=== PATIENT | female | born 1955 | race American Indian/Alaskan Native ===

== ENCOUNTER 2017-02-08 17:08 | Inpatient (IN) | payer SELFPAY ==
[2017-02-08 18:41] LABS: Basophils % (Auto) 0.8 % (0.0-1.8); Eosinophils % (Auto) 2.5 % (0.0-4.3); Hematocrit 41.7 % (30.3-42.9); Hemoglobin 13.6 gm/dl (10.1-14.3); Mean Corpuscular HGB Conc 33 % (30-34); Mean Corpuscular Hemoglobin 27 pg (28-32); Mean Corpuscular Volume 83 fl (79-97); Platelet Count 231 K/mm3 (140-440); Red Blood Count 5.03 M/mm3 (3.65-5.03); White Blood Count 6.8 K/mm3 (4.5-11.0)
[2017-02-08 18:59] LABS: Anion Gap 18 mmol/L; BUN/Creatinine Ratio 18.75; Blood Urea Nitrogen 15 mg/dL (7-17); Calcium 9.7 mg/dL (8.4-10.2); Carbon Dioxide 26 mmol/L (22-30); Chloride 102.6 mmol/L (98-107); Glucose 83 mg/dL (65-100); Potassium 3.9 mmol/L (3.6-5.0); Sodium 143 mmol/L (137-145)
--- NOTE | 2017-02-08 21:17 | Emergency Department Report ---
HPI - General Chief Complaint: Dyspnea/Respdistress Time Seen by Provider: 02/08/17 21:00 - HPI HPI: Room 1 The patient is a 61-year-old female presenting with a chief complaint of shortness of breath. The patient states for the past 2 weeks she has noticed shortness of breath has worsened today. Patient describes dyspnea on exertion with a few feet. Patient also admits to orthopnea and fatigue. The patient states she has had a cough but has been nonproductive. Patient denies fever or chest pain. Currently at rest the patient states she feels "calm." Location: Lungs Duration: 2 weeks Quality: Shortness of breath Severity: Moderate Modifying factors: Exertion causes shortness of breath Context: [see above] Mode of transportation: Unknown ED Past Medical Hx - Past Medical History Previous Medical History?: Yes Hx of Cancer: Yes (right breast s/p mast, xrt/chemo 2001) - Surgical History Past Surgical History?: Yes Hx Breast Surgery: Yes (right mastectomy, 1984,) Additional Surgical History: Right Achilles tendon repair, , tonsillectomy - Family History Family history: no significant - Social History Smoking Status: Never Smoker Substance Use Type: Alcohol - Medications Home Medications: Home Medications Medication Instructions Recorded Confirmed Last Taken Type No Known Home Medications [No 02/08/17 02/08/17 Unknown History Reported Home Medications] ED Review of Systems ROS: Stated complaint: JUNO Other details as noted in HPI Comment: All other systems reviewed and negative Constitutional: denies: chills, fever Eyes: denies: eye pain, eye discharge, vision change ENT: denies: ear pain, throat pain Respiratory: cough, shortness of breath, SOB with exertion Cardiovascular: orthopnea. denies: chest pain Endocrine: no symptoms reported Gastrointestinal: denies: abdominal pain, nausea, diarrhea Genitourinary: denies: urgency, dysuria, discharge Musculoskeletal: denies: back pain, joint swelling, arthralgia Skin: denies: rash, lesions Neurological: denies: headache, weakness, paresthesias Psychiatric: denies: anxiety, depression Hematological/Lymphatic: denies: easy bleeding, easy bruising Physical Exam - Physical Exam Vital Signs: Vital Signs 02/08/17 02/08/17 02/08/17 17:31 19:32 20:00 Temperature 98.1 F Pulse Rate 102 H 95 H 84 Respiratory 22 21 Rate Blood Pressure 163/104 160/73 O2 Sat by Pulse 99 99 97 Oximetry 02/08/17 21:00 Temperature Pulse Rate 98 H Respiratory 22 Rate Blood Pressure 168/85 O2 Sat by Pulse 100 Oximetry Physical Exam: GENERAL: The patient is well-developed well-nourished female lying on stretcher not appearing to be in acute distress. [] HEENT: Normocephalic. Atraumatic. Extraocular motions are intact. Patient has moist mucous membranes. NECK: Supple. Trachea midline CHEST/LUNGS: Clear to auscultation. There is no respiratory distress noted. HEART/CARDIOVASCULAR: Regular with occasional PACs. There is no tachycardia. There is no gallop rub or murmur. ABDOMEN: Abdomen is soft, nontender. Patient has normal bowel sounds. There is no abdominal distention. SKIN: There is no rash. There is no edema. There is no diaphoresis. NEURO: The patient is awake, alert, and oriented. The patient is cooperative. The patient has normal speech MUSCULOSKELETAL: There is no evidence of acute injury. ED Course Vital Signs 02/08/17 02/08/17 02/08/17 17:31 19:32 20:00 Temperature 98.1 F Pulse Rate 102 H 95 H 84 Respiratory 22 21 Rate Blood Pressure 163/104 160/73 O2 Sat by Pulse 99 99 97 Oximetry 02/08/17 21:00 Temperature Pulse Rate 98 H Respiratory 22 Rate Blood Pressure 168/85 O2 Sat by Pulse 100 Oximetry ED Medical Decision Making - Lab Data Result diagrams: 02/08/17 18:29 02/08/17 18:29 Laboratory Tests 02/08/17 02/08/17 02/08/17 18:29 18:29 18:29 WBC 6.8 RBC 5.03 Hgb 13.6 Hct 41.7 MCV 83 MCH 27 L MCHC 33 RDW 14.0 Plt Count 231 Lymph % (Auto) 40.6 H [place] % (Auto) 7.1 Eos % (Auto) 2.5 Baso % (Auto) 0.8 Lymph # 2.8 [place] # 0.5 Eos # 0.2 Baso # 0.1 Seg Neutrophils % 49.0 Seg Neutrophils # 3.3 Sodium 143 Potassium 3.9 Chloride 102.6 Carbon Dioxide 26 Anion Gap 18 BUN 15 Creatinine 0.8 Estimated GFR > 60 BUN/Creatinine Ratio 18.75 Glucose 83 Calcium 9.7 Troponin T < 0.010 NT-Pro-B Natriuret Pep 1879 H - EKG Data -: EKG Interpreted by Me EKG shows normal: sinus rhythm Rate: normal - EKG Data When compared to previous EKG there are: previous EKG unavailable Interpretation: other (left bundle branch block) - Radiology Data Radiology results: image reviewed (chest x-ray) interpreted by me: Chest x-ray-mild cephalization. No definite focal infiltrates, no pneumothorax - Differential Diagnosis CHF, pneumonia, pneumothorax, PE Critical care attestation.: If time is entered above; I have spent that time in minutes in the direct care of this critically ill patient, excluding procedure time. ED Disposition Clinical Impression: CHF (congestive heart failure), Shortness of breath Disposition: OP ADMIT IP TO THIS HOSP Is pt being admited?: Yes Does the pt Need Aspirin: Yes Condition: Fair Referrals: PRIMARY CARE, [Primary Care Provider] - 3-5 Days Time of Disposition: 21:23 (hospitalist paged)
[2017-02-08] MEDS ORDERED: LASIX IV ONE (21:19)
[2017-02-08] MEDS ORDERED: ASPIRIN PO ONE (21:23)
--- NOTE | 2017-02-08 23:30 | History and Physical Report ---
History of Present Illness Date of examination: 02/08/17 History of present illness: 61-year-old woman with a history of breast cancer, status post right masectomy, comes emergency room with complaints of shortness of breath 2 weeks. Also complaining of PND, orthopnea and lower extremity edema. Patient denies chest pain, palpitation, cough, abdominal pain, hematochezia, dysuria, frequency, focal weakness, dysarthria, fever chills, polydipsia polyuria, hot or cold intolerance, easy bruisability, or rash or bleeding from mucosal membrane, rhinorrhea, epistaxis, earache, tinnitus, blurry vision, eye discharge, anxiety, depression. Other review of systems negative PAST SURGICAL HISTORY: Right mastectomy, , tonsillectomy, adenoidectomy , Achilles tendon repair SOCIAL HISTORY: Denies alcohol, tobacco, drugs FAMILY HISTORY: Hypertension Medications and Allergies Allergies Allergy/AdvReac Type Severity Reaction Status Date / Time No Known Allergies Allergy Verified 02/09/17 00:26 Home Medications Medication Instructions Recorded Confirmed Last Taken Type No Known Home Medications [No 02/08/17 02/08/17 Unknown History Reported Home Medications] Exam - Physical Exam Narrative exam: Gen. appearance: Patient lying in bed, no apparent distress HEENT: Normocephalic, atraumatic, pupils equally round and reactive to light, extraocular movement intact, and no sclericterus,. No JVD or thyromegaly or nodule,neck supple, no carotid bruit ,mucous membranes moist, no exudate or erythema Heart: S1, S2, regular rate and rhythm Lungs: Crackles bilaterally, breathing comfortable Abdomen: Positive bowel sounds, nontender, nondistended, no organomegaly Extremity: No edema, cyanosis, clubbing Skin: No rash, nodules, warm, dry Neuro: Oriented 3, cranial nerves II-12 intact, speech is fluent, motor and sensory intact - Constitutional Vitals: Temp Pulse Resp BP Pulse Ox 98.1 F 85 22 159/85 97 02/08/17 17:31 02/08/17 23:00 02/08/17 23:00 02/08/17 23:00 02/08/17 23:00 Results - Labs CBC & Chem 7: 02/10/17 07:13 02/11/17 08:25 Labs: Abnormal lab results 02/08/17 02/08/17 Range/Units 18:29 18:29 MCH 27 L (28-32) pg Lymph % (Auto) 40.6 H (13.4-35.0) % NT-Pro-B Natriuret Pep 1879 H (0-900) pg/mL - Imaging and Cardiology EKG: image reviewed Chest x-ray: image reviewed Assessment and Plan CHF, new onset, probably systolic dysfunction History of breast cancer Admit to medicine Start diuresis with IV Lasix Start aspirin, MOUSTAPHA inhibitor, beta omid Check cardiac enzymes, echo, consult cardiology Monitor I's and O's, daily weights Start DVT prophylaxis
[2017-02-09] MEDS ORDERED: TYLENOL PO PRN (00:17)
[2017-02-09] MEDS ORDERED: ZOFRAN IV PRN (00:17)
[2017-02-09] MEDS ORDERED: PERCOCET 5/325 PO PRN (00:17)
[2017-02-09] MEDS ORDERED: MILK OF MAGNESIA PO PRN (00:17)
[2017-02-09] MEDS ORDERED: DULCOLAX PR PRN (00:17)
[2017-02-09 01:19] LABS: Creatine Kinase MB 1.9 ng/mL (0.0-4.0)
[2017-02-09 01:22] LABS: Creatine Kinase 112 units/L (30-135)
[2017-02-09] MEDS: LASIX IV SCH ×2 (07:06→17:28)
--- NOTE | 2017-02-09 07:09 | Admit Criteria Form ---
Admission Criteria Documentation: HEART FAILURE: COMMON COMPLICATIONS Clinical Indications for Inpatient Care (Place 'X' for any and all applicable criteria): Ongoing inpatient care may be indicated for heart failure with ANY ONE of the following (1)(2)(3)(4)(5): [ ]I. Ongoing need for care for primary condition requiring frequent therapy adjustments because of changes in cardiac function (eg, drug dosage changes for drugs that are renally metabolized) [X ]II. New-onset heart failure [ ]III. Heart failure with decreased urine output not responsive to attempts to optimize volume status [ ]IV. Acute cardiac ischemia causing or associated with failure [ X]V. Complications of heart failure, including ANY ONE of the following: [ ]a) Pericardial effusion [ ]b) Symptomatic pleural effusion [ ]c) O2 saturation <90% or PO2 < 60 mm Hg (8.0 kPa) on room air or require baseline supplemental O2 [ ]d) Tachypnea [ X]e) Dyspnea [ ]f) Syncope [ ]g) Change in mental status [ ]h) Acute renal insufficiency that is severe (reduction of more than 50% in estimated glomerular filtration rate from baseline) or progressive reduction of more than 25% in estimated glomerular filtration rate from baseline, with creatinine continuing to rise) [ ]i) Hemodynamic instability [ ]j) Anasarca [ ]k) Clinically significant metabolic abnormalities due to heart failure (eg, new-onset metabolic acidosis) Extended stay beyond goal length of stay for primary condition may be needed until ALL of the following are present(1)(3): [ ]a) Stable and effective diuretic regimen established (or patient on stable dialysis regimen if in chronic renal failure) [ ]b) Breathing comfortably at rest [ ]c) Saturation of arterial oxygen greater than 90% or at acceptable baseline [ ]d) Pulmonary edema absent or improved [ ]e) Hemodynamic stability [ ]f) Volume status acceptable on oral medication [ ]g) Peripheral or sacral edema absent or improved [ ]h) Renal function stable and manageable at a lower level of care [ ]i) Complications (eg, pleural effusion) resolved or manageable at a lower level of care [ ]j) Patient or caregiver has received written discharge instructions or educational material addressing activity level, diet, discharge medications, follow-up appointment, weight monitoring, and what to do if symptoms worsen The original [employer] content created by [employer] has been revised. The portions of the content which have been revised are identified through the use of italic text or in bold, and [facility] has neither reviewed nor approved the modified material.All other unmodified content is copyright [facility]. Please see references footnoted in the original [facility] edition 2016 Admission Criteria Met: Yes
--- NOTE | 2017-02-09 08:41 | XRay Report ---
CHEST TWO VIEWS: 02/08/17 18:12 CLINICAL: Shortness of breath. COMPARISON: None FINDINGS: The heart is normal size. Central vascular congestion and bilateral hilar fullness. Bilateral perihilar reticular interstitial opacities.No pulmonary consolidation. Right upper lobe subsegmental atelectasis versus scar. There is elevation of the right minor fissure consistent with right upper lobe volume loss. Spondylosis of the thoracic spine. 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 Right upper lobe volume loss of uncertain chronicity.
[2017-02-09] MEDS: LOPRESSOR PO SCH ×2 (11:10→22:01)
[2017-02-09] MEDS: ZESTRIL PO SCH (11:10)
[2017-02-09] MEDS: ASPIRIN PO SCH (11:10)
[2017-02-09 11:37] LABS: Creatine Kinase 116 units/L (30-135)
--- NOTE | 2017-02-09 12:14 | Consultation ---
History of Present Illness Consult date: 02/09/17 Consult reason: shortness of breath History of present illness: 61 yo female presents to ed with a 2 wk history of worsening sob progressing from exertion to rest, also c/o orthopnea. no cp palp syncope cough fever or chills. phx of htn but states that bp became normal with wt loss and no longer takes antihtn meds. she is s/p r mastectomy for breast ca and is believed to be cancer free ecg demonstrates sinus rhythm with lbbb bnp elevated. trop neg Past History Past Medical History: hypertension Past Surgical History: mastectomy Social history: denies: smoking, alcohol abuse Family history: denies: no significant family history Medications and Allergies Allergies Allergy/AdvReac Type Severity Reaction Status Date / Time No Known Allergies Allergy Verified 02/09/17 00:26 Home Medications Medication Instructions Recorded Confirmed Last Taken Type No Known Home Medications [No 02/08/17 02/08/17 Unknown History Reported Home Medications] Active Meds: Active Medications Acetaminophen (Tylenol) 650 mg PO Q4H PRN PRN Reason: Pain MILD(1-3)/Fever >100.5/[facility] Aspirin (Aspirin) 325 mg PO QDAY [facility] Last Admin: 02/09/17 11:10 Dose: 325 mg Bisacodyl (Dulcolax) 10 mg [place] QDAY PRN PRN Reason: Constipation unrelieved by MOM Furosemide (Lasix) 40 mg IV BID@0600,1800 [facility] Last Admin: 02/09/17 07:06 Dose: 40 mg Lisinopril (Zestril) 2.5 mg PO QDAY [facility] Last Admin: 02/09/17 11:10 Dose: 2.5 mg Magnesium Hydroxide (Milk Of Magnesia) 30 ml PO Q4H PRN PRN Reason: Constipation Metoprolol Tartrate (Lopressor) 12.5 mg PO BID [facility] Last Admin: 02/09/17 11:10 Dose: 12.5 mg Ondansetron HCl (Zofran) 4 mg IV Q8H PRN PRN Reason: N/V unrelieved by Reglan Oxycodone/Acetaminophen (Percocet 5/325) 1 tab PO Q6H PRN PRN Reason: Pain, Moderate (4-6) Review of Systems Constitutional: no fever, no chills, no sweats, no anorexia Eyes: bilateral: blurred vision (denies) Ears, nose, mouth and throat: no epistaxis Breasts: other (s/p r mastectomy) Cardiovascular: orthopnea, dyspnea on exertion, no chest pain, no palpitations, no syncope Respiratory: shortness of breath, dyspnea on exertion, no hemoptysis, no pain on inspiration Gastrointestinal: no abdominal pain, no nausea, no vomiting Genitourinary Female: no flank pain Musculoskeletal: no hot joints, no frequent falls Integumentary: no rash Neurological: no seizures, no syncope Psychiatric: no anxiety Endocrine: no cold intolerance, no heat intolerance Hematologic/Lymphatic: no easy bruising Allergic/Immunologic: no urticaria Physical Examination Vital Signs Temp Pulse Resp BP Pulse Ox 98.1 F 102 H 22 163/104 99 02/08/17 17:31 02/08/17 17:31 02/08/17 17:31 02/08/17 17:31 02/08/17 17:31 General appearance: no acute distress HEENT: Positive: PERRL, EOMI Neck: Positive: neck supple, Carotid Upstroke (2+ bilat). Negative: JVD/HJR, Bruit Cardiac: Positive: Reg Rate and Rhythm. Negative: Audible Murmur Lungs: Positive: clear to auscultation Neuro: Positive: Grossly Intact Abdomen: Positive: Soft. Negative: Tender Musculoskeletal: Normal Range of Motion Extremities: Present: edema (trace pedal bilat), Other (periph pulses intact) Results 02/08/17 18:29 02/08/17 18:29 Cardiac Enzymes 02/09/17 02/09/17 Range/Units 00:40 08:27 CK-MB (CK-2) 1.9 2.0 (0.0-4.0) ng/mL Assessment and Plan clinical presentation consistent with new onset systolic heart failure, lbbb rec diuresis, echo. may need an ischemic eval thanks, will follow
--- NOTE | 2017-02-09 15:26 | Progress Note ---
Subjective Date of service: 02/09/17 Interval history: Assessment and plan: New onset systolic congestive heart failure: Patient feels significantly better since he came in She is able to walk to the restroom with out any shortness of breath Denies chest pain Cardiology note reviewed and appreciated Await echo results Troponin 2 sets negative for MN Continue aspirin low-dose beta blockers and diuretics History of breast cancer in remission Patient is alert and oriented She offers no specific complaints at this time Denies any chest pain and denies any shortness of breath at rest and with mild exertion like walking to the restroom She feels a whole lot better since she came in Denies fever or chills sore throat dysphagia nasal congestion Denies abdominal pain nausea or vomiting Objective - Constitutional Vitals: Vital Signs - 12hr 02/09/17 02/09/17 02/09/17 03:35 04:00 05:00 Temperature 97.7 F Pulse Rate 76 76 Respiratory 15 17 Rate Blood Pressure 151/74 153/72 O2 Sat by Pulse 96 97 Oximetry 02/09/17 02/09/17 02/09/17 06:00 07:36 08:00 Temperature Pulse Rate 91 H 80 90 Respiratory 21 17 18 Rate Blood Pressure 160/69 153/72 153/61 O2 Sat by Pulse 95 98 98 Oximetry 02/09/17 02/09/17 02/09/17 09:00 10:00 11:00 Temperature Pulse Rate 83 84 75 Respiratory 17 19 16 Rate Blood Pressure 151/57 146/60 148/64 O2 Sat by Pulse 98 97 97 Oximetry 02/09/17 02/09/17 11:10 12:08 Temperature Pulse Rate 75 Respiratory 16 Rate Blood Pressure 148/64 O2 Sat by Pulse 97 Oximetry General appearance: Present: no acute distress - EENT Eyes: PERRL, EOM intact ENT: hearing intact, clear oral mucosa - Neck Neck: supple, normal ROM - Respiratory Respiratory effort: normal Respiratory: bilateral: CTA - Cardiovascular Rhythm: regular Heart Sounds: Present: S1 & S2 Extremities: No edema - Gastrointestinal General gastrointestinal: Present: soft, non-tender. Absent: hepatomegaly, splenomegaly - Musculoskeletal Musculoskeletal: strength equal bilaterally - Neurologic Neurologic: moves all extremities - Psychiatric Psychiatric: appropriate mood/affect - Labs CBC & Chem 7: 02/08/17 18:29 02/08/17 18:29
[2017-02-10] MEDS: LASIX IV SCH ×2 (05:57→17:46)
[2017-02-10 07:38] LABS: Basophils % (Auto) 0.5 % (0.0-1.8); Eosinophils % (Auto) 2.1 % (0.0-4.3); Hematocrit 42.5 % (30.3-42.9); Hemoglobin 14.2 gm/dl (10.1-14.3); Mean Corpuscular HGB Conc 33 % (30-34); Mean Corpuscular Hemoglobin 28 pg (28-32); Mean Corpuscular Volume 83 fl (79-97); Platelet Count 224 K/mm3 (140-440); Red Blood Count 5.15 M/mm3 (3.65-5.03); Red Cell Distribution Width 14.4 % (13.2-15.2); White Blood Count 5.9 K/mm3 (4.5-11.0)
[2017-02-10 08:02] LABS: Blood Urea Nitrogen 33 mg/dL (7-17); Calcium 9.4 mg/dL (8.4-10.2); Carbon Dioxide 27 mmol/L (22-30); Glucose 101 mg/dL (65-100)
[2017-02-10 08:03] LABS: Anion Gap 20 mmol/L; Potassium 4.5 mmol/L (3.6-5.0); Sodium 140 mmol/L (137-145)
[2017-02-10] MEDS: LOPRESSOR PO SCH ×2 (11:25→21:29)
[2017-02-10] MEDS: ASPIRIN PO SCH (11:25)
[2017-02-10] MEDS: ZESTRIL PO SCH (11:26)
--- NOTE | 2017-02-10 11:49 | Progress Note ---
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 Plan: Echo reviewed - EF 30-35%, mild LVH, grade I diastolic dysfunction, mild to moderate MR, trace TR. Cont diuresis with IV lasix BID. Repeat BMP in AM. Convert lopressor BID to Toprol XL in AM. Cont lisinopril. CXR suspicious for sarcoidosis per radiology. Consult pulmonary, Dr. Smith. Consider coronary angiography for further evaluation of CMP etiology once medically stabilized. Assessment and plan reviewed with pt at bedside. The patient has been seen in conjunction with Dr. Cortez who agrees with the assessment and plan of care. Subjective Date of service: 02/10/17 Principal diagnosis: systolic HF Interval history: pt resting in bed, states SOB improving. VSS. Objective Last Vital Signs Temp 98.2 F 02/10/17 07:05 Pulse 87 02/10/17 11:25 Resp 16 02/10/17 07:05 BP 119/58 02/10/17 07:05 Pulse Ox 98 02/10/17 07:05 - Physical Examination General: No Apparent Distress HEENT: Positive: PERRL, EOMI Neck: Positive: neck supple, Carotid Upstroke (2+ bilat). Negative: JVD/HJR, Bruit Cardiac: Positive: Reg Rate and Rhythm, S1/S2 Lungs: Positive: Decreased Breath Sounds Neuro: Positive: Grossly Intact Abdomen: Positive: Soft. Negative: Tender Musculoskeletal: Normal Range of Motion Extremities: Present: edema (trace pedal bilat), Other (periph pulses intact) - Labs and Meds CBC 02/10/17 Range/Units 07:13 WBC 5.9 (4.5-11.0) K/mm3 RBC 5.15 H (3.65-5.03) M/mm3 Hgb 14.2 (10.1-14.3) gm/dl Hct 42.5 (30.3-42.9) % Plt Count 224 (140-440) K/mm3 Lymph # 2.1 (1.2-5.4) K/mm3 [place] # 0.5 (0.0-0.8) K/mm3 Eos # 0.1 (0.0-0.4) K/mm3 Baso # 0.0 (0.0-0.1) K/mm3 Comprehensive Metabolic Panel 02/10/17 Range/Units 07:13 Sodium 140 (137-145) mmol/L Potassium 4.5 (3.6-5.0) mmol/L Chloride 98.0 (98-107) mmol/L Carbon Dioxide 27 (22-30) mmol/L BUN 33 H (7-17) mg/dL Creatinine 1.1 (0.7-1.2) mg/dL Glucose 101 H (65-100) mg/dL Calcium 9.4 (8.4-10.2) mg/dL - Imaging and Cardiology EKG: image reviewed - Telemetry EKG Rhythm: Sinus Rhythm
--- NOTE | 2017-02-10 17:04 | Progress Note ---
Assessment and Plan Assessment and plan: Acute systolic CHF Cardiomyopathy ischemic versus nonischemic versus sarcoidosis Hypertension Left bundle branch block - Patient is on an appropriate medication for suture - Patient is going to have this test Tomorrow - Pulmonary consult is placed for sarcoidosis evaluation DVT prophylaxis - Lovenox Disposition - Continue inpatient care History Interval history: Patient was seen and evaluated this morning, patient is breathing comfortably, no new complaints. Hospitalist Physical - Physical exam Narrative exam: Not in cardiopulmonary distress. The patient appeared well nourished and normally developed. Vital signs as documented. Head exam is unremarkable. No scleral icterus . Neck is without jugular venous distension, thyromegaly, or carotid bruits. Lungs are clear to auscultation. Cardiac exam reveals regular rate and Rhythm. First and second heart sounds normal. No murmurs, rubs or gallops. Abdominal exam reveals normal bowel sounds, no masses, no organomegaly and no aortic enlargement. Extremities are nonedematous and both femoral and pedal pulses are normal. [employer]: Alert and oriented 3. No focal weakness. - Constitutional Vitals: Temp Pulse Resp BP Pulse Ox 98.7 F 87 12 128/60 99 02/10/17 15:42 02/10/17 11:25 02/10/17 15:42 02/10/17 15:42 02/10/17 15:42 General appearance: Present: no acute distress Results - Labs CBC & Chem 7: 02/10/17 07:13 02/10/17 07:13 Labs: Laboratory Last Values WBC 5.9 K/mm3 (4.5-11.0) 02/10/17 07:13 RBC 5.15 M/mm3 (3.65-5.03) H 02/10/17 07:13 Hgb 14.2 gm/dl (10.1-14.3) 02/10/17 07:13 Hct 42.5 % (30.3-42.9) 02/10/17 07:13 MCV 83 fl (79-97) 02/10/17 07:13 MCH 28 pg (28-32) 02/10/17 07:13 MCHC 33 % (30-34) 02/10/17 07:13 RDW 14.4 % (13.2-15.2) 02/10/17 07:13 Plt Count 224 K/mm3 (140-440) 02/10/17 07:13 Lymph % (Auto) 35.3 % (13.4-35.0) H 02/10/17 07:13 [place] % (Auto) 9.2 % (0.0-7.3) H 02/10/17 07:13 Eos % (Auto) 2.1 % (0.0-4.3) 02/10/17 07:13 Baso % (Auto) 0.5 % (0.0-1.8) 02/10/17 07:13 Lymph # 2.1 K/mm3 (1.2-5.4) 02/10/17 07:13 [place] # 0.5 K/mm3 (0.0-0.8) 02/10/17 07:13 Eos # 0.1 K/mm3 (0.0-0.4) 02/10/17 07:13 Baso # 0.0 K/mm3 (0.0-0.1) 02/10/17 07:13 Seg Neutrophils % 52.9 % (40.0-70.0) 02/10/17 07:13 Seg Neutrophils # 3.1 K/mm3 (1.8-7.7) 02/10/17 07:13 Sodium 140 mmol/L (137-145) 02/10/17 07:13 Potassium 4.5 mmol/L (3.6-5.0) 02/10/17 07:13 Chloride 98.0 mmol/L (98-107) 02/10/17 07:13 Carbon Dioxide 27 mmol/L (22-30) 02/10/17 07:13 Anion Gap 20 mmol/L 02/10/17 07:13 BUN 33 mg/dL (7-17) H 02/10/17 07:13 Creatinine 1.1 mg/dL (0.7-1.2) 02/10/17 07:13 Estimated GFR > 60 ml/min 02/10/17 07:13 BUN/Creatinine Ratio 30.00 % 02/10/17 07:13 Glucose 101 mg/dL (65-100) H 02/10/17 07:13 Calcium 9.4 mg/dL (8.4-10.2) 02/10/17 07:13 Total Creatine Kinase 116 units/L (30-135) 02/09/17 08:27 CK-MB (CK-2) 2.0 ng/mL (0.0-4.0) 02/09/17 08:27 CK-MB (CK-2) Rel Index 1.7 (0-4) 02/09/17 08:27 Troponin T < 0.010 ng/mL (0.00-0.029) 02/09/17 08:27 NT-Pro-B Natriuret Pep 1879 pg/mL (0-900) H 02/08/17 18:29
--- NOTE | 2017-02-10 21:58 | Consultation ---
History of Present Illness Reason for consult: dyspnea History of present illness: This is a patient with a hx of breast cancer sp surgery and chemo, hypertension off meds secondary to weight loss( she has been off meds for greater than 2 yrs. She reports that over the past few months she has has some increase in SOB which got worse over the past few weeks. She was admitted and found to have evidence of volume overload. She has recd diuresis with improvement of symptoms. She reports that she is scheduled for cardiac cath in am. Presently she reports that she feels better. No sob at rest or excertion. Past History Past Medical History: hypertension, other (questionable sarcoidosis) Past Surgical History: mastectomy Social history: lives with family, full code. denies: smoking (never), alcohol abuse Family history: diabetes, hypertension. denies: no significant family history Medications and Allergies Allergies Allergy/AdvReac Type Severity Reaction Status Date / Time No Known Allergies Allergy Verified 02/09/17 00:26 Home Medications Medication Instructions Recorded Confirmed Last Taken Type No Known Home Medications [No 02/08/17 02/08/17 Unknown History Reported Home Medications] Active Meds: Active Medications Acetaminophen (Tylenol) 650 mg PO Q4H PRN PRN Reason: Pain MILD(1-3)/Fever >100.5/[facility] Aspirin (Aspirin) 325 mg PO QDAY [facility] Last Admin: 02/10/17 11:25 Dose: 325 mg Bisacodyl (Dulcolax) 10 mg DE QDAY PRN PRN Reason: Constipation unrelieved by MOM Furosemide (Lasix) 40 mg IV BID@0600,1800 [facility] Last Admin: 02/10/17 17:46 Dose: 40 mg Lisinopril (Zestril) 2.5 mg PO QDAY [facility] Last Admin: 02/10/17 11:26 Dose: 2.5 mg Magnesium Hydroxide (Milk Of Magnesia) 30 ml PO Q4H PRN PRN Reason: Constipation Metoprolol Succinate (Toprol Xl) 25 mg PO QDAY [facility] Metoprolol Tartrate (Lopressor) 12.5 mg PO BID [facility] Stop: 02/10/17 23:00 Last Admin: 02/10/17 21:29 Dose: Not Given Ondansetron HCl (Zofran) 4 mg IV Q8H PRN PRN Reason: N/V unrelieved by Reglan Oxycodone/Acetaminophen (Percocet 5/325) 1 tab PO Q6H PRN PRN Reason: Pain, Moderate (4-6) Review of Systems Constitutional: weight gain, fatigue Cardiovascular: orthopnea, dyspnea on exertion Physical Examination Vital signs: Vital Signs Temp Pulse Resp BP Pulse Ox 98.1 F 102 H 22 163/104 99 02/08/17 17:31 02/08/17 17:31 02/08/17 17:31 02/08/17 17:31 02/08/17 17:31 General appearance: no acute distress Eyes: non-icteric ENT: oropharynx moist Neck: supple Effort: normal Ascultation: Bilateral: clear Cardiovascular: regular rate and rhythm Gastrointestinal: normoactive bowel sounds, soft, non-tender Integumentary: normal Musculoskeletal: no deformities normal mental status Results - Laboratory Findings CBC and BMP: 02/10/17 07:13 02/10/17 07:13 Abnormal lab findings: Abnormal Labs 02/10/17 02/10/17 07:13 07:13 RBC 5.15 H Lymph % (Auto) 35.3 H [place] % (Auto) 9.2 H BUN 33 H Glucose 101 H - Diagnostic Findings Chest x-ray: report reviewed, image reviewed (hilar adenopathy vol loss in rul and increase in interstial markings bilat) Assessment and Plan - Patient Problems (1) Cardiomyopathy Current Visit: Yes Status: Acute Qualifiers: Cardiomyopathy type: C (2) Abnormal CXR (chest x-ray) Current Visit: Yes Status: Acute (3) Adenopathy Current Visit: Yes Status: Acute (4) Breast cancer in female Current Visit: Yes Status: Acute Qualifiers: Breast location: B Estrogen receptor status: E Laterality: L (5) Shortness of breath Current Visit: Yes Status: Acute
[2017-02-11] MEDS: LASIX IV SCH ×2 (05:47→17:34)
[2017-02-11] MEDS ORDERED: NACL ONE (08:13)
[2017-02-11 10:07] LABS: Anion Gap 17 mmol/L; BUN/Creatinine Ratio 34.44; Blood Urea Nitrogen 31 mg/dL (7-17); Calcium 9.2 mg/dL (8.4-10.2); Carbon Dioxide 28 mmol/L (22-30); Chloride 99.5 mmol/L (98-107); Glucose 86 mg/dL (65-100); Potassium 4.2 mmol/L (3.6-5.0); Sodium 140 mmol/L (137-145)
--- NOTE | 2017-02-11 10:12 | Cat Scan Report ---
CT CHEST WITH CONTRAST: 02/08/17 23:29:00 CLINICAL: Abnormal chest x-ray. Comparison: 02/08/17 chest x-ray. TECHNIQUE: Volumetric acquisition and 1.25 mm scan reconstructions after the uneventful intravenous injection of 100cc Omnipaque 300. Consent was obtained prior to the administration of contrast. FINDINGS: Mild volume loss of the right upper lobe and a scar or subsegmental atelectasis extending obliquely across the right upper lobe.Mild right upper lobe tubular bronchiectasis with prominent bronchi contiguous to the medial pleura of the right upper lobe. No interstitial disease identified. No airspace disease or pleural effusion. No mass or lymphadenopathy. Normal heart and aorta. The left thyroid lobe is enlarged and multinodular. There is suggestion of a dominant 1.9 cm left thyroid nodule. Normal trachea and esophagus. The upper abdomen is significant for a 2.1 cm benign right hepatic cyst. Normal bones and soft tissues. IMPRESSION: 1. Right upper lobe scar and mild bronchiectasis. 2. No airspace disease or interstitial lung disease. The bilateral perihilar interstitial process identified on the chest x-ray has resolved. 3. No signs of sarcoidosis. 4. Multinodular thyroid involving the left lobe. 5. Benign right hepatic cyst.
[2017-02-11] MEDS: ZESTRIL PO SCH (10:44)
[2017-02-11] MEDS: TOPROL XL PO SCH (10:44)
[2017-02-11] MEDS: ASPIRIN PO SCH (10:44)
--- NOTE | 2017-02-11 11:07 | Progress Note ---
Assessment and Plan Right upper lobe bronchiectasis. Patient with slight tubular bronchiectasis changes on chest CT scan. No additional findings to support diagnosis of sarcoidosis. He is to review shows that the patient have been suffering from recurrent episodes of pneumonia at least once a year for the past 15 years. Congestive heart failure with volume overload Cardiomyopathy with EF of 30-35% Moderate MR History of breast cancer Recommendations Continue and complete gentle diuretics Cardiology follow-up Update pneumococcal and influenza vaccinations IgG panel, serum IgA Albuterol nebulizations every 4-6 hours as needed Chest PT training Subjective Date of service: 02/11/17 Principal diagnosis: systolic HF Interval history: Per report no respiratory symptoms. She denies cough or expectoration at that time. Objective Vital Signs - 12hr 02/11/17 02/11/17 02/11/17 01:12 05:22 08:00 Temperature 98.1 F 98.1 F 98.2 F Pulse Rate [ 99 H Apical] Pulse Rate [ 73 80 Right Dorsalis Pedis] Respiratory 19 18 18 Rate Blood Pressure 115/51 143/67 114/54 [Right Arm] O2 Sat by Pulse 98 97 99 Oximetry Constitutional: no acute distress, alert Eyes: non-icteric ENT: oropharynx moist Neck: supple Effort: normal Ascultation: Bilateral: clear Cardiovascular: regular rate and rhythm Gastrointestinal: normoactive bowel sounds, soft, non-tender Integumentary: normal Neurologic: normal mental status CBC and BMP: 02/10/17 07:13 02/11/17 08:25 Abnormal lab findings: Abnormal Labs 02/10/17 02/10/17 02/11/17 07:13 07:13 08:25 RBC 5.15 H Lymph % (Auto) 35.3 H [place] % (Auto) 9.2 H BUN 33 H [address] scan - chest: report reviewed, image reviewed
--- NOTE | 2017-02-11 14:39 | Progress Note ---
Assessment and Plan Assessment and plan: Acute systolic CHF Cardiomyopathy ischemic versus nonischemic CMP Hypertension Left bundle branch block - Patient is on an appropriate medication for heart failure - Patient is going to have cardiac cath on Monday - Pulmonary consult is placed for sarcoidosis evaluation and doesn't think she has sarcoidosis, looks like bronchoectasis DVT prophylaxis - Lovenox Disposition - Continue inpatient care History Interval history: Patient was seen and evaluated this morning, patient is breathing comfortably, no new complaints. Hospitalist Physical - Physical exam Narrative exam: Not in cardiopulmonary distress. The patient appeared well nourished and normally developed. Vital signs as documented. Head exam is unremarkable. No scleral icterus . Neck is without jugular venous distension, thyromegaly, or carotid bruits. Lungs are clear to auscultation. Cardiac exam reveals regular rate and Rhythm. First and second heart sounds normal. No murmurs, rubs or gallops. Abdominal exam reveals normal bowel sounds, no masses, no organomegaly and no aortic enlargement. Extremities are nonedematous and both femoral and pedal pulses are normal. EMTS: Alert and oriented 3. No focal weakness. - Constitutional Vitals: Temp Pulse Resp BP Pulse Ox 97.9 F 73 18 122/65 99 02/11/17 12:00 02/11/17 12:00 02/11/17 12:00 02/11/17 12:00 02/11/17 12:00 General appearance: Present: no acute distress Results - Labs CBC & Chem 7: 02/10/17 07:13 02/11/17 08:25 Labs: Laboratory Last Values WBC 5.9 K/mm3 (4.5-11.0) 02/10/17 07:13 RBC 5.15 M/mm3 (3.65-5.03) H 02/10/17 07:13 Hgb 14.2 gm/dl (10.1-14.3) 02/10/17 07:13 Hct 42.5 % (30.3-42.9) 02/10/17 07:13 MCV 83 fl (79-97) 02/10/17 07:13 MCH 28 pg (28-32) 02/10/17 07:13 MCHC 33 % (30-34) 02/10/17 07:13 RDW 14.4 % (13.2-15.2) 02/10/17 07:13 Plt Count 224 K/mm3 (140-440) 02/10/17 07:13 Lymph % (Auto) 35.3 % (13.4-35.0) H 02/10/17 07:13 [place] % (Auto) 9.2 % (0.0-7.3) H 02/10/17 07:13 Eos % (Auto) 2.1 % (0.0-4.3) 02/10/17 07:13 Baso % (Auto) 0.5 % (0.0-1.8) 02/10/17 07:13 Lymph # 2.1 K/mm3 (1.2-5.4) 02/10/17 07:13 [place] # 0.5 K/mm3 (0.0-0.8) 02/10/17 07:13 Eos # 0.1 K/mm3 (0.0-0.4) 02/10/17 07:13 Baso # 0.0 K/mm3 (0.0-0.1) 02/10/17 07:13 Seg Neutrophils % 52.9 % (40.0-70.0) 02/10/17 07:13 Seg Neutrophils # 3.1 K/mm3 (1.8-7.7) 02/10/17 07:13 Sodium 140 mmol/L (137-145) 02/11/17 08:25 Potassium 4.2 mmol/L (3.6-5.0) 02/11/17 08:25 Chloride 99.5 mmol/L (98-107) 02/11/17 08:25 Carbon Dioxide 28 mmol/L (22-30) 02/11/17 08:25 Anion Gap 17 mmol/L 02/11/17 08:25 BUN 31 mg/dL (7-17) H 02/11/17 08:25 Creatinine 0.9 mg/dL (0.7-1.2) 02/11/17 08:25 Estimated GFR > 60 ml/min 02/11/17 08:25 BUN/Creatinine Ratio 34.44 % 02/11/17 08:25 Glucose 86 mg/dL (65-100) 02/11/17 08:25 Calcium 9.2 mg/dL (8.4-10.2) 02/11/17 08:25 Total Creatine Kinase 116 units/L (30-135) 02/09/17 08:27 CK-MB (CK-2) 2.0 ng/mL (0.0-4.0) 02/09/17 08:27 CK-MB (CK-2) Rel Index 1.7 (0-4) 02/09/17 08:27 Troponin T < 0.010 ng/mL (0.00-0.029) 02/09/17 08:27 NT-Pro-B Natriuret Pep 1879 pg/mL (0-900) H 02/08/17 18:29
--- NOTE | 2017-02-11 15:07 | Progress Note ---
Subjective Date of service: 02/11/17 Principal diagnosis: systolic HF Interval history: This is a pleasant 61 female: Acute systolic heart failure CMP - ischemic v. nonischemic v. chemotherapy induced v. sarcoidosis LBBB HTN H/o breast CA - pt received chemo (Adrimycin) and radiation 15 years ago. Plan: Echo reviewed - EF 30-35%, mild LVH, grade I diastolic dysfunction, mild to moderate MR, trace TR. Cont diuresis with IV lasix BID. Repeat BMP in AM. Convert lopressor BID to Toprol XL in AM. Cont lisinopril. CXR suspicious for sarcoidosis per radiology- pulm following. cath monday. Assessment and plan reviewed with pt at bedside. Objective Vital Signs Temp Pulse Pulse Resp BP Pulse Ox 02/11/17 12:00 97.9 F 73 18 122/65 99 02/11/17 08:00 98.2 F 99 H 18 114/54 99 02/11/17 05:22 98.1 F 80 18 143/67 97 02/11/17 01:12 98.1 F 73 19 115/51 98 02/10/17 20:27 97.5 F L 79 19 109/54 95 02/10/17 17:48 98.5 F 118/56 02/10/17 15:42 98.7 F 12 128/60 99 - Physical Examination General: No Apparent Distress HEENT: Positive: PERRL, EOMI Neck: Positive: neck supple, Carotid Upstroke (2+ bilat). Negative: JVD/HJR, Bruit Neuro: Positive: Grossly Intact Abdomen: Positive: Soft. Negative: Tender Musculoskeletal: Normal Range of Motion Extremities: Present: edema (trace pedal bilat), Other (periph pulses intact) - Labs and Meds Comprehensive Metabolic Panel 02/11/17 Range/Units 08:25 Sodium 140 (137-145) mmol/L Potassium 4.2 (3.6-5.0) mmol/L Chloride 99.5 (98-107) mmol/L Carbon Dioxide 28 (22-30) mmol/L BUN 31 H (7-17) mg/dL Creatinine 0.9 (0.7-1.2) mg/dL Glucose 86 (65-100) mg/dL Calcium 9.2 (8.4-10.2) mg/dL - Imaging and Cardiology EKG: image reviewed
[2017-02-12] MEDS: LASIX IV SCH ×2 (06:50→17:55)
[2017-02-12 06:59] LABS: Anion Gap 17 mmol/L; BUN/Creatinine Ratio 28.18; Blood Urea Nitrogen 31 mg/dL (7-17); Calcium 9.5 mg/dL (8.4-10.2); Carbon Dioxide 29 mmol/L (22-30); Chloride 98.3 mmol/L (98-107); Glucose 99 mg/dL (65-100); Potassium 4.4 mmol/L (3.6-5.0); Sodium 140 mmol/L (137-145)
[2017-02-12] MEDS: ASPIRIN PO SCH (10:54)
[2017-02-12] MEDS: ZESTRIL PO SCH (10:55)
[2017-02-12] MEDS: TOPROL XL PO SCH (10:55)
--- NOTE | 2017-02-12 11:26 | Progress Note ---
Assessment and Plan Right upper lobe bronchiectasis. Patient with slight tubular bronchiectasis changes on chest CT scan. No additional findings to support diagnosis of sarcoidosis. I asked the patient and she is no clear work this reported diagnosis came from. She does have history of recurrent pneumonias. Congestive heart failure with volume overload Cardiomyopathy with EF of 30-35% Moderate MR History of breast cancer Recommendations Continue and complete gentle diuretics Cardiology follow-up Update pneumococcal and influenza vaccinations IgG panel, serum IgA Albuterol nebulizations every 4-6 hours as needed Chest PT training Will update MOUSTAPHA level. If significantly elevated then, will readdress pursuing sarcoid diagnosis. If this is the case (and workup is positive), she may need an update cardiac PET scan/MRI to evaluate for sarcoid related cardiomyopathy Subjective Date of service: 02/12/17 Principal diagnosis: systolic HF Interval history: Patient states that she is feeling significantly better. History review shows that she had orthopnea of 2-3 pillows and using more often that her primary to sleep in recent months. It is unclear if she had been snoring and there is no history of witnessed apneas. No chest pain. Scheduled for heart Tomorrow. Objective Vital Signs - 12hr 02/12/17 02/12/17 02/12/17 00:00 05:45 07:00 Temperature 98.2 F 98.2 F 98.4 F Pulse Rate Pulse Rate [ 73 69 67 Right Radial] Respiratory 18 18 12 Rate Blood Pressure 114/73 127/58 110/63 [Right Arm] O2 Sat by Pulse 99 100 97 Oximetry 02/12/17 10:00 Temperature Pulse Rate 67 Pulse Rate [ 67 Right Radial] Respiratory 12 Rate Blood Pressure [Right Arm] O2 Sat by Pulse Oximetry Constitutional: no acute distress, alert Eyes: non-icteric ENT: oropharynx moist Neck: supple, no JVD Effort: normal Ascultation: Bilateral: clear, diminished breath sounds Cardiovascular: regular rate and rhythm Gastrointestinal: normoactive bowel sounds, soft, non-tender Integumentary: normal Neurologic: normal mental status, non-focal exam, pupils equal and round, CN II- XII normal, motor strength normal and CBC and BMP: 02/10/17 07:13 02/12/17 06:05 Abnormal lab findings: Abnormal Labs 02/10/17 02/10/17 02/11/17 07:13 07:13 08:25 RBC 5.15 H Lymph % (Auto) 35.3 H [place] % (Auto) 9.2 H BUN 33 H 31 H Glucose 101 H 02/12/17 06:05 RBC Lymph % (Auto) [place] % (Auto) BUN 31 H Glucose
--- NOTE | 2017-02-12 11:35 | Progress Note ---
Assessment and Plan This is a pleasant 61yo female: Acute systolic heart failure CMP - ischemic v. nonischemic v. chemotherapy induced v. sarcoidosis LBBB HTN H/o breast CA - pt received chemo (Adrimycin) and radiation 15 years ago. Plan: Echo reviewed - EF 30-35%, mild LVH, grade I diastolic dysfunction, mild to moderate MR, trace TR. Cont diuresis with IV lasix BID. Convert lopressor BID to Toprol XL in AM. Cont lisinopril. CXR suspicious for sarcoidosis per radiology- pulm following. cath monday. Assessment and plan reviewed with pt at bedside. Subjective Date of service: 02/12/17 Principal diagnosis: systolic HF Interval history: no complaints Objective Vital Signs Temp Pulse Pulse Pulse Pulse Resp BP 02/12/17 10:00 67 67 12 02/12/17 07:00 98.4 F 67 12 02/12/17 05:45 98.2 F 69 18 02/12/17 00:00 98.2 F 73 18 02/11/17 22:00 73 18 02/11/17 19:34 97.9 F 77 18 02/11/17 15:30 98.1 F 76 18 98/55 02/11/17 12:00 97.9 F 73 18 BP Pulse Ox 02/12/17 10:00 02/12/17 07:00 110/63 97 02/12/17 05:45 127/58 100 02/12/17 00:00 114/73 99 02/11/17 22:00 02/11/17 19:34 109/55 97 02/11/17 15:30 100 02/11/17 12:00 122/65 99 - Physical Examination General: No Apparent Distress HEENT: Positive: PERRL, EOMI Neck: Positive: neck supple, Carotid Upstroke (2+ bilat). Negative: JVD/HJR, Bruit Neuro: Positive: Grossly Intact Abdomen: Positive: Soft. Negative: Tender Musculoskeletal: Normal Range of Motion Extremities: Present: edema (trace pedal bilat), Other (periph pulses intact) - Labs and Meds Comprehensive Metabolic Panel 02/12/17 Range/Units 06:05 Sodium 140 (137-145) mmol/L Potassium 4.4 (3.6-5.0) mmol/L Chloride 98.3 (98-107) mmol/L Carbon Dioxide 29 (22-30) mmol/L BUN 31 H (7-17) mg/dL Creatinine 1.1 (0.7-1.2) mg/dL Glucose 99 (65-100) mg/dL Calcium 9.5 (8.4-10.2) mg/dL - Imaging and Cardiology EKG: image reviewed
--- NOTE | 2017-02-12 13:23 | Progress Note ---
Assessment and Plan Assessment and plan: Acute systolic CHF Cardiomyopathy ischemic versus nonischemic CMP Hypertension Left bundle branch block - Patient is on an appropriate medication for heart failure - Patient is going to have cardiac cath on Monday - Pulmonary consult is placed for sarcoidosis evaluation and doesn't think she has sarcoidosis, looks like bronchoectasis DVT prophylaxis - Lovenox Disposition - Will be discharged tomorrow after cardiac cath History Interval history: Patient was seen and evaluated this morning, patient is breathing comfortably, no new complaints. Hospitalist Physical - Physical exam Narrative exam: Not in cardiopulmonary distress. The patient appeared well nourished and normally developed. Vital signs as documented. Head exam is unremarkable. No scleral icterus . Neck is without jugular venous distension, thyromegaly, or carotid bruits. Lungs are clear to auscultation. Cardiac exam reveals regular rate and Rhythm. First and second heart sounds normal. No murmurs, rubs or gallops. Abdominal exam reveals normal bowel sounds, no masses, no organomegaly and no aortic enlargement. Extremities are nonedematous and both femoral and pedal pulses are normal. [employer]: Alert and oriented 3. No focal weakness. - Constitutional Vitals: Temp Pulse Resp BP Pulse Ox 98.4 F 67 12 110/63 97 02/12/17 07:00 02/12/17 10:00 02/12/17 10:00 02/12/17 07:00 02/12/17 07:00 General appearance: Present: no acute distress Results - Labs CBC & Chem 7: 02/10/17 07:13 02/12/17 06:05 Labs: Laboratory Last Values WBC 5.9 K/mm3 (4.5-11.0) 02/10/17 07:13 RBC 5.15 M/mm3 (3.65-5.03) H 02/10/17 07:13 Hgb 14.2 gm/dl (10.1-14.3) 02/10/17 07:13 Hct 42.5 % (30.3-42.9) 02/10/17 07:13 MCV 83 fl (79-97) 02/10/17 07:13 MCH 28 pg (28-32) 02/10/17 07:13 MCHC 33 % (30-34) 02/10/17 07:13 RDW 14.4 % (13.2-15.2) 02/10/17 07:13 Plt Count 224 K/mm3 (140-440) 02/10/17 07:13 Lymph % (Auto) 35.3 % (13.4-35.0) H 02/10/17 07:13 [place] % (Auto) 9.2 % (0.0-7.3) H 02/10/17 07:13 Eos % (Auto) 2.1 % (0.0-4.3) 02/10/17 07:13 Baso % (Auto) 0.5 % (0.0-1.8) 02/10/17 07:13 Lymph # 2.1 K/mm3 (1.2-5.4) 02/10/17 07:13 [place] # 0.5 K/mm3 (0.0-0.8) 02/10/17 07:13 Eos # 0.1 K/mm3 (0.0-0.4) 02/10/17 07:13 Baso # 0.0 K/mm3 (0.0-0.1) 02/10/17 07:13 Seg Neutrophils % 52.9 % (40.0-70.0) 02/10/17 07:13 Seg Neutrophils # 3.1 K/mm3 (1.8-7.7) 02/10/17 07:13 Sodium 140 mmol/L (137-145) 02/12/17 06:05 Potassium 4.4 mmol/L (3.6-5.0) 02/12/17 06:05 Chloride 98.3 mmol/L (98-107) 02/12/17 06:05 Carbon Dioxide 29 mmol/L (22-30) 02/12/17 06:05 Anion Gap 17 mmol/L 02/12/17 06:05 BUN 31 mg/dL (7-17) H 02/12/17 06:05 Creatinine 1.1 mg/dL (0.7-1.2) 02/12/17 06:05 Estimated GFR > 60 ml/min 02/12/17 06:05 BUN/Creatinine Ratio 28.18 % 02/12/17 06:05 Glucose 99 mg/dL (65-100) 02/12/17 06:05 Calcium 9.5 mg/dL (8.4-10.2) 02/12/17 06:05 Total Creatine Kinase 116 units/L (30-135) 02/09/17 08:27 CK-MB (CK-2) 2.0 ng/mL (0.0-4.0) 02/09/17 08:27 CK-MB (CK-2) Rel Index 1.7 (0-4) 02/09/17 08:27 Troponin T < 0.010 ng/mL (0.00-0.029) 02/09/17 08:27 NT-Pro-B Natriuret Pep 1879 pg/mL (0-900) H 02/08/17 18:29
[2017-02-13 06:18] LABS: INR 0.93 (0.87-1.13)
[2017-02-13 06:21] LABS: Basophils % (Auto) 0.7 % (0.0-1.8); Eosinophils % (Auto) 2.5 % (0.0-4.3); Hematocrit 39.6 % (30.3-42.9); Mean Corpuscular HGB Conc 33 % (30-34); Mean Corpuscular Hemoglobin 27 pg (28-32); Mean Corpuscular Volume 83 fl (79-97); Platelet Count 212 K/mm3 (140-440); Red Blood Count 4.77 M/mm3 (3.65-5.03); Red Cell Distribution Width 14.3 % (13.2-15.2); White Blood Count 5.5 K/mm3 (4.5-11.0)
[2017-02-13] MEDS: LASIX IV SCH (06:22)
[2017-02-13 06:26] LABS: Anion Gap 16 mmol/L; BUN/Creatinine Ratio 32.22; Blood Urea Nitrogen 29 mg/dL (7-17); Calcium 9.2 mg/dL (8.4-10.2); Carbon Dioxide 30 mmol/L (22-30); Chloride 98.6 mmol/L (98-107); Glucose 99 mg/dL (65-100); Potassium 4.3 mmol/L (3.6-5.0); Sodium 140 mmol/L (137-145)
[2017-02-13] MEDS ORDERED: NACL 0.9% 1000 ML 1,000 ML IV SCH (08:30)
[2017-02-13] MEDS: ZESTRIL PO SCH (10:00)
[2017-02-13] MEDS: TOPROL XL PO SCH (10:00)
--- NOTE | 2017-02-13 11:07 | Progress Note ---
Assessment and Plan 61 y/o female with acute CHF and bronchiectasis seen on CT 1. Follow up MOUSTAPHA level sent by my partner 2. No history of sarcoid likely symptoms or other sarcoid related diseases 3. Remainder of lung work up can be done as an outpatient. 4. Pending cath results, no objection to discharge from a lung standpoint. Subjective Date of service: 02/13/17 Principal diagnosis: systolic HF Interval history: No acute events. Stable on room air. Awaiting heart cath. Objective Vital Signs - 12hr 02/13/17 02/13/17 02/13/17 00:00 04:31 07:30 Temperature 98.2 F 98.1 F 97.8 F Pulse Rate [ 67 67 69 Right Radial] Respiratory 18 18 18 Rate Blood Pressure 131/63 134/63 104/61 [Right Arm] O2 Sat by Pulse 97 98 100 Oximetry Constitutional: no acute distress, alert Eyes: non-icteric ENT: oropharynx moist Neck: supple, no JVD Effort: normal Ascultation: Bilateral: clear, diminished breath sounds Cardiovascular: regular rate and rhythm Gastrointestinal: normoactive bowel sounds, soft, non-tender Integumentary: normal Neurologic: normal mental status, non-focal exam, pupils equal and round, CN II- XII normal, motor strength normal and CBC and BMP: 02/13/17 05:40 02/13/17 05:40 ABG, PT/INR, D-dimer: PT/INR, D-dimer PT 12.4 Sec. (12.2-14.9) 02/13/17 05:40 INR 0.93 (0.87-1.13) 02/13/17 05:40 Abnormal lab findings: Abnormal Labs 02/10/17 02/10/17 02/11/17 07:13 07:13 08:25 RBC 5.15 H MCH Lymph % (Auto) 35.3 H [place] % (Auto) 9.2 H BUN 33 H 31 H Glucose 101 H 02/12/17 02/13/17 02/13/17 06:05 05:40 05:40 RBC MCH 27 L Lymph % (Auto) 44.5 H [place] % (Auto) 8.8 H BUN 31 H 29 H Glucose
[2017-02-13] MEDS ORDERED: ASPIRIN ONE (11:57)
[2017-02-13] MEDS: ASPIRIN PO SCH (11:58)
[2017-02-13] MEDS ORDERED: XYLOCAINE 2% INFILTRATI ONE (12:11)
[2017-02-13] MEDS ORDERED: NITROGLYCERIN SYRINGE 3 ML ONE (12:11)
[2017-02-13] MEDS ORDERED: CALAN ONE (12:11)
[2017-02-13] MEDS ORDERED: HEPARIN 10,000 UNITS/10 ML ONE (12:11)
[2017-02-13] MEDS ORDERED: HEPARIN/NS 5000 UNIT/500ML(CATH LAB) 1,000 ML IR ONE (12:11)
[2017-02-13] MEDS ORDERED: VERSED ONE (12:12)
[2017-02-13] MEDS ORDERED: SUBLIMAZE ONE (12:12)
--- NOTE | 2017-02-13 12:43 | Progress Note ---
Assessment and Plan acute systolic dsyfunction history of breast cancer lbbb htn rec: cardiac cath normalization of lv function, cont spenser and coreg and reduce lasix 20mg every third day and follow up in the office repeat muga for lv function. Subjective Date of service: 02/13/17 Principal diagnosis: systolic HF Interval history: pt sob is improved Objective Vital Signs Temp Pulse Pulse Pulse Resp BP BP 02/13/17 11:47 98.3 F 69 18 134/49 02/13/17 07:30 97.8 F 69 18 104/61 02/13/17 04:31 98.1 F 67 18 134/63 02/13/17 00:00 98.2 F 67 18 131/63 02/12/17 22:00 60 02/12/17 20:00 98.4 F 70 18 114/55 02/12/17 18:27 98.7 F 99 H 16 129/58 Pulse Ox 02/13/17 11:47 100 02/13/17 07:30 100 02/13/17 04:31 98 02/13/17 00:00 97 02/12/17 22:00 02/12/17 20:00 98 02/12/17 18:27 100 - Physical Examination General: No Apparent Distress HEENT: Positive: PERRL, EOMI Neck: Positive: neck supple, Carotid Upstroke (2+ bilat). Negative: JVD/HJR, Bruit Cardiac: Positive: Reg Rate and Rhythm Lungs: Positive: clear to auscultation Neuro: Positive: Grossly Intact Abdomen: Positive: Soft. Negative: Tender Musculoskeletal: Normal Range of Motion Extremities: Present: edema (trace pedal bilat), Other (periph pulses intact) - Labs and Meds Coagulation 02/13/17 Range/Units 05:40 PT 12.4 (12.2-14.9) Sec. INR 0.93 (0.87-1.13) CBC 02/13/17 Range/Units 05:40 WBC 5.5 (4.5-11.0) K/mm3 RBC 4.77 (3.65-5.03) M/mm3 Hgb 13.0 (10.1-14.3) gm/dl Hct 39.6 (30.3-42.9) % Plt Count 212 (140-440) K/mm3 Lymph # 2.4 (1.2-5.4) K/mm3 [place] # 0.5 (0.0-0.8) K/mm3 Eos # 0.1 (0.0-0.4) K/mm3 Baso # 0.0 (0.0-0.1) K/mm3 Comprehensive Metabolic Panel 02/13/17 Range/Units 05:40 Carbon Dioxide 30 (22-30) mmol/L BUN 29 H (7-17) mg/dL Creatinine 0.9 (0.7-1.2) mg/dL Glucose 99 (65-100) mg/dL Calcium 9.2 (8.4-10.2) mg/dL - Imaging and Cardiology EKG: image reviewed Cardiac cath: report reviewed (lt main patent lad patent, lcx patent rca patent with mild luminal irregularities and normal lv function) - Telemetry EKG Rhythm: Sinus Rhythm
--- NOTE | 2017-02-13 12:56 | Discharge Summary ---
Providers - Providers Date of Admission: 02/08/17 23:29 Date of discharge: 02/13/17 Attending physician: TIGRE MORGAN MD 02/09/17 00:17 Consult to Physician [CONS] Routine Consulting Provider: THEA LICONA Reason For Exam: chf Place consult to:: charlie peckvincent Notified:: yes Phone number called:: [phone] Was contact made?: Yes If yes, spoke with:: Noelle Time called:: 07:15 02/10/17 11:51 Consult to Physician [CONS] Routine Consulting Provider: FAIZA PEACOCK Reason For Exam: possible sarcoidosis on CXR Place consult to:: matt Notified:: office Phone number called:: [phone] Was contact made?: Yes Time called:: 12:05 02/13/17 12:38 Consult to Cardiac Rehabilitation [CONS] Routine Reason For Exam: Cardiac Rehab Evaluation Primary care physician: COOKING INSTRUCTOR Hospitalization Reason for admission: SOB, cardiomyopathy Condition: Fair Pertinent studies: Echo EF of 30-35 % Procedures: Left heart cath, clean coronaries, LVF is normal. Hospital course: 61-year-old woman with a history of breast cancer, status post right masectomy, comes emergency room with complaints of shortness of breath 2 weeks. Also complaining of PND, orthopnea and lower extremity edema. Echo was done and shows ejection fraction of 30-35% and she was managed with IV Lasix, lisinopril , metoprolol and patient is getting better. Today cardiac cath was done and showed patent coronary arteries, left ventricular function was normal. We will send the patient with Lasix 20 mg every third day, lisinopril and metoprolol. Patient needed to have follow-up with primary care physician within one week and [facility] with in 2 weeks. Because there is discrepancy between echo and left heart cath patient needs to have MUGA as an outpatient. Patient's concerns and questions were addressed at the bedside. Medications were refilled. Patient didn't have insurance and I have discussed with the addiction social worker and career resource specialist to give her resources how to have follow -up with primary care physician and [facility]. Disposition: - TO HOME OR SELFCARE Time spent for discharge: 31 minutes - Discharge Diagnoses (1) Breast cancer in female Status: Acute Qualifiers: Breast location: B Estrogen receptor status: E Laterality: L (2) CHF (congestive heart failure) Status: Acute Qualifiers: Congestive heart failure type: C Congestive heart failure chronicity: C (3) Cardiomyopathy Status: Acute Qualifiers: Cardiomyopathy type: C (4) Shortness of breath Status: Acute Core Measure Documentation - Palliative Care Palliative Care/ Comfort Measures: Not Applicable - Core Measures Any of the following diagnoses?: none - Heart Failure Discharge Requirements MOUSTAPHA/ARB for LVSD if EF <40%: Yes Beta omid at discharge: Yes Exam - Physical Exam Narrative exam: Not in cardiopulmonary distress. The patient appeared well nourished and normally developed. Vital signs as documented. Head exam is unremarkable. No scleral icterus . Neck is without jugular venous distension, thyromegaly, or carotid bruits. Lungs are clear to auscultation. Cardiac exam reveals regular rate and Rhythm. First and second heart sounds normal. No murmurs, rubs or gallops. Abdominal exam reveals normal bowel sounds, no masses, no organomegaly and no aortic enlargement. Extremities are nonedematous and both femoral and pedal pulses are normal. NEW VEHICLE SALES CONSULTANT: Alert and oriented 3. No focal weakness. - Constitutional Vitals: Temp Pulse Resp BP Pulse Ox 98.3 F 69 18 134/49 100 02/13/17 11:47 02/13/17 11:47 02/13/17 11:47 02/13/17 11:47 02/13/17 11:47 Plan Activity: no restrictions Weight Bearing Status: Full Weight Bearing Diet: low cholesterol, low salt Follow up with: PRIMARY MD [place] [Primary Care Provider] - 7 Days JERMAINE VERGARA MD [Staff Physician] - 14 Days Prescriptions: Furosemide [Lasix] 20 mg PO Q72H #30 tablet Lisinopril [Zestril TAB] 2.5 mg PO QDAY #30 tablet Metoprolol Xl [Metoprolol SUCCINATE ER TAB] 25 mg PO QDAY #30 tablet
[2017-02-13 16:54] VITALS: BP 119/56
--- NOTE | 2017-02-13 17:28 | Cardiac Catherization Report ---
LEFT HEART CATHETERIZATION CLINICAL INFORMATION: This is a 61-year-old female with history of cancer going through chemotherapy, came for acute shortness of breath, found with [id number] LV dysfunction, is here for left heart cath and rule out coronary artery disease for LV dysfunction. Left heart cath performed via the right radial artery, sterile technique, local anesthesia, 6-Vietnamese radial sheath inserted. Left system engaged with a JL3.5 catheter. FINDINGS: Left main is a medium caliber vessel that is patent. LAD trifurcates in medium caliber LAD that is patent , diagonal 1 small caliber vessels that are patent. Ramus medium caliber vessel is patent. Circumflex and AV groove are small to medium caliber vessels. RCA engaged with JR4 catheter. Medium caliber vessels are patent with mild luminal irregularities. PDA and PLV are small caliber vessels that are patent. LV gram done in the ELSA and SARMIENTO view shows normal LV function of 50-55%. LVEDP at 20 mmHg, LV is 129/20, aortic is 127/60. No gradient across the aortic valve on pullback. 5-Vietnamese catheters were taken over a guidewire. A 5-Vietnamese radial sheath was discontinued. Radial dressing applied. No hematoma. No bleeding. SUMMARY: 1. Patent coronaries with mild luminal irregularities in the RCA with normalization of LV function with normal left end-diastolic pressure. 2. Continue medical management of LV dysfunction with beta omid and MOUSTAPHA, reduce diuretics and the patient will follow up in the office and repeat MUGA scan in 2 months time for maintenance of LV function. Discussed this with the patient. [facility]# [id number] JERONIMO/LAKSHMI GLORIA
== END 2017-02-13 16:55 | disposition home or self-care (01) | DRG 287 ==
LOC: ED 17:08 → 4A 23:29
PROVIDERS: ADMIT Internal Medicine; ATTEND Internal Medicine
PROC: 4A023N7 Measurement of Cardiac Sampling and Pressure, Left Heart, Percutaneous Approach (ICD-10-PCS; principal; 2017-02-13)
PROC: B2111ZZ Fluoroscopy of Multiple Coronary Arteries using Low Osmolar Contrast (ICD-10-PCS; 2017-02-13)
DX: I11.0 Hypertensive heart disease with heart failure (principal); I50.21 Acute systolic (congestive) heart failure; I44.7 Left bundle-branch block, unspecified; I42.9 Cardiomyopathy, unspecified; J47.9 Bronchiectasis, uncomplicated; R59.9 Enlarged lymph nodes, unspecified; E87.70 Fluid overload, unspecified; C50.919 Malignant neoplasm of unspecified site of unspecified female breast; Z90.11 Acquired absence of right breast and nipple; Z90.89 Acquired absence of other organs; Z98.891 History of uterine scar from previous surgery; Z82.49 Family history of ischemic heart disease and other diseases of the circulatory system; Z83.3 Family history of diabetes mellitus
CPT/HCPCS: 36415; 71020; 71260; 80048; 82164; 82550; 82553; 82962; 83880; 84484; 85025; 85610; 93005; 93010; 93306; 93458; 96374; C1894; J1644; J1940; J2250; J3010; J7030; Q9967

== ENCOUNTER 2017-03-03 20:30 | Inpatient (IN) | payer SELFPAY ==
[2017-03-03 21:04] LABS: Basophils % (Auto) 0.8 % (0.0-1.8); Eosinophils % (Auto) 2.5 % (0.0-4.3); Hemoglobin 13.9 gm/dl (10.1-14.3); Mean Corpuscular HGB Conc 32 % (30-34); Mean Corpuscular Hemoglobin 27 pg (28-32); Mean Corpuscular Volume 83 fl (79-97); Platelet Count 213 K/mm3 (140-440); Red Blood Count 5.17 M/mm3 (3.65-5.03); Red Cell Distribution Width 14.4 % (13.2-15.2); White Blood Count 8.3 K/mm3 (4.5-11.0)
[2017-03-03 21:16] LABS: Anion Gap 20 mmol/L; Blood Urea Nitrogen 14 mg/dL (7-17); Calcium 9.6 mg/dL (8.4-10.2); Carbon Dioxide 24 mmol/L (22-30); Chloride 102.7 mmol/L (98-107); Glucose 101 mg/dL (65-100); Potassium 4.1 mmol/L (3.6-5.0); Sodium 143 mmol/L (137-145)
[2017-03-03] MEDS ORDERED: LASIX IV ONE (22:25)
--- NOTE | 2017-03-03 22:31 | Emergency Department Report ---
HPI - General Chief Complaint: Dyspnea/Respdistress Time Seen by Provider: 03/03/17 22:10 - HPI HPI: Room 20 The patient is a 61-year-old female presenting with a chief complaint of shortness of breath. Patient states she was recently diagnosed with CHF was placed on spironolactone which she has been taking daily. The patient states this evening while at rest she developed shortness of breath and diaphoresis. Patient denied chest pain. Patient admits to bilateral lower extremity edema for 1 week. Patient states she's had a cough has been nonproductive for 2 weeks. Patient states she has had dyspnea on exertion in the ED. Location: Lungs, heart Duration: One day Quality: Shortness of breath Severity: Moderate Modifying factors: [see above] Context: [see above] Mode of transportation: [not driving] ED Past Medical Hx - Past Medical History Previous Medical History?: Yes Hx Hypertension: Yes Hx Congestive Heart Failure: Yes Hx of Cancer: Yes (breast (remission) s/p lumpectomy, xrt, ) - Surgical History Past Surgical History?: Yes Hx Breast Surgery: Yes (right lumpectomy) Additional Surgical History: Right Achilles tendon repair, , tonsillectomy - Family History Family history: no significant - Social History Smoking Status: Never Smoker Substance Use Type: None, Alcohol (occasional) - Medications Home Medications: Home Medications Medication Instructions Recorded Confirmed Last Taken Type Losartan [Cozaar] 50 mg PO QDAY 03/03/17 03/03/17 Unknown History Metoprolol Xl [Metoprolol 50 mg PO QDAY 03/03/17 03/03/17 Unknown History SUCCINATE ER TAB] Spironolactone [Aldactone] 25 mg PO QDAY 03/03/17 03/03/17 Unknown History ED Review of Systems ROS: Stated complaint: DIFFICULTY IN BREATHING Other details as noted in HPI Comment: All other systems reviewed and negative Constitutional: diaphoresis Eyes: denies: eye pain, eye discharge, vision change ENT: denies: ear pain, throat pain Respiratory: cough, shortness of breath, wheezing Cardiovascular: dyspnea on exertion. denies: chest pain, palpitations Endocrine: no symptoms reported Gastrointestinal: denies: abdominal pain, nausea, diarrhea Genitourinary: denies: urgency, dysuria, discharge Musculoskeletal: denies: back pain, joint swelling, arthralgia Skin: denies: rash, lesions Neurological: denies: headache, weakness, paresthesias Psychiatric: denies: anxiety, depression Hematological/Lymphatic: denies: easy bleeding, easy bruising Physical Exam - Physical Exam Vital Signs: Vital Signs 03/03/17 03/03/17 03/03/17 20:34 20:35 20:38 Temperature 98.3 F Pulse Rate 117 H Respiratory 19 22 22 Rate Blood Pressure 175/125 Blood Pressure [Left] O2 Sat by Pulse 98 98 Oximetry 03/03/17 03/03/17 03/03/17 20:41 20:44 20:51 Temperature Pulse Rate 99 H 101 H Respiratory 24 24 Rate Blood Pressure 153/82 Blood Pressure 175/125 [Left] O2 Sat by Pulse 97 98 Oximetry 03/03/17 03/03/17 03/03/17 20:53 21:00 21:19 Temperature Pulse Rate 101 H 112 H 106 H Respiratory 23 18 25 H Rate Blood Pressure 172/90 165/79 Blood Pressure 153/82 [Left] O2 Sat by Pulse 97 90 98 Oximetry 03/03/17 03/03/17 03/03/17 21:20 21:30 21:41 Temperature Pulse Rate 104 H 93 H 96 H Respiratory 26 H 23 22 Rate Blood Pressure 165/79 145/62 145/62 Blood Pressure [Left] O2 Sat by Pulse 99 98 99 Oximetry 03/03/17 03/03/17 21:51 22:00 Temperature Pulse Rate 95 H 97 H Respiratory 26 H 18 Rate Blood Pressure 165/79 169/68 Blood Pressure [Left] O2 Sat by Pulse 99 99 Oximetry Physical Exam: GENERAL: The patient is well-developed well-nourished female sitting on stretcher not appearing to be in acute distress. [] HEENT: Normocephalic. Atraumatic. Extraocular motions are intact. Patient has moist mucous membranes. NECK: Supple. Trachea midline CHEST/LUNGS: Trace crackles bibasilarly. There is no respiratory distress noted. HEART/CARDIOVASCULAR: Regular. There is no tachycardia. There is no gallop rub or murmur. ABDOMEN: Abdomen is soft, nontender. Patient has normal bowel sounds. There is no abdominal distention. SKIN: There is no rash. There is trace to 1+ bilateral lower extremity pitting edema. There is no diaphoresis. NEURO: The patient is awake, alert, and oriented. The patient is cooperative. The patient has normal speech MUSCULOSKELETAL: There is no evidence of acute injury. ED Course Vital Signs 03/03/17 03/03/17 03/03/17 20:34 20:35 20:38 Temperature 98.3 F Pulse Rate 117 H Respiratory 19 22 22 Rate Blood Pressure 175/125 Blood Pressure [Left] O2 Sat by Pulse 98 98 Oximetry 03/03/17 03/03/17 03/03/17 20:41 20:44 20:51 Temperature Pulse Rate 99 H 101 H Respiratory 24 24 Rate Blood Pressure 153/82 Blood Pressure 175/125 [Left] O2 Sat by Pulse 97 98 Oximetry 03/03/17 03/03/17 03/03/17 20:53 21:00 21:19 Temperature Pulse Rate 101 H 112 H 106 H Respiratory 23 18 25 H Rate Blood Pressure 172/90 165/79 Blood Pressure 153/82 [Left] O2 Sat by Pulse 97 90 98 Oximetry 03/03/17 03/03/17 03/03/17 21:20 21:30 21:41 Temperature Pulse Rate 104 H 93 H 96 H Respiratory 26 H 23 22 Rate Blood Pressure 165/79 145/62 145/62 Blood Pressure [Left] O2 Sat by Pulse 99 98 99 Oximetry 03/03/17 03/03/17 21:51 22:00 Temperature Pulse Rate 95 H 97 H Respiratory 26 H 18 Rate Blood Pressure 165/79 169/68 Blood Pressure [Left] O2 Sat by Pulse 99 99 Oximetry ED Medical Decision Making - Lab Data Result diagrams: 03/03/17 20:40 03/03/17 20:40 Laboratory Tests 03/03/17 03/03/17 20:40 20:40 WBC 8.3 RBC 5.17 H Hgb 13.9 Hct 43.0 H MCV 83 MCH 27 L MCHC 32 RDW 14.4 Plt Count 213 Lymph % (Auto) 27.8 [place] % (Auto) 5.1 Eos % (Auto) 2.5 Baso % (Auto) 0.8 Lymph # 2.3 [place] # 0.4 Eos # 0.2 Baso # 0.1 Seg Neutrophils % 63.8 Seg Neutrophils # 5.3 Sodium 143 Potassium 4.1 Chloride 102.7 Carbon Dioxide 24 Anion Gap 20 BUN 14 Creatinine 0.8 Estimated GFR > 60 BUN/Creatinine Ratio 17.50 Glucose 101 H Calcium 9.6 Troponin T < 0.010 NT-Pro-B Natriuret Pep 2031 H - EKG Data -: EKG Interpreted by Me EKG shows normal: sinus rhythm Rate: normal - EKG Data When compared to previous EKG there are: no significant change Interpretation: unchanged when compared t (02/08/2017), other (left bundle branch block) - Radiology Data Radiology results: image reviewed (chest x-ray) Chest x-ray-CHF - Differential Diagnosis CHF exacerbation, ACS, pneumonia, GERD Critical care attestation.: If time is entered above; I have spent that time in minutes in the direct care of this critically ill patient, excluding procedure time. ED Disposition Clinical Impression: CHF exacerbation, Shortness of breath Disposition: OP ADMIT IP TO THIS HOSP Is pt being admited?: Yes Does the pt Need Aspirin: Yes Condition: Fair Referrals: PRIMARY CARE, [Primary Care Provider] - 3-5 Days Time of Disposition: 22:35 (hospitalist paged)
[2017-03-03] MEDS ORDERED: ASPIRIN PO ONE (22:37)
[2017-03-03] MEDS ORDERED: DUONEB *Not for PRN Use IH ONE (23:11)
[2017-03-03 23:22] LABS: Bacteria,Urine 1+ /HPF (Negative); Bilirubin,Urine NEG (Negative); Blood,Urine NEG (Negative); Ketones,Urine NEG (Negative); Leukocyte Esterase,Urine TR (Negative); Nitrite,Urine NEG (Negative); Urobilinogen,Urine < 2.0 mg/dL (<2.0)
[2017-03-03] MEDS ORDERED: PERCOCET 5/325 PO PRN (23:27)
[2017-03-03] MEDS ORDERED: ZOFRAN IV PRN (23:27)
[2017-03-03] MEDS ORDERED: DULCOLAX PR PRN (23:27)
[2017-03-03] MEDS ORDERED: MILK OF MAGNESIA PO PRN (23:27)
[2017-03-03] MEDS ORDERED: TYLENOL PO PRN (23:27)
--- NOTE | 2017-03-03 23:27 | History and Physical Report ---
History of Present Illness Date of examination: 03/03/17 History of present illness: 1-year-old woman with a history of breast cancer, status post right masectomy, comes emergency room with complaints of shortness of breath,PND, orthopnea and lower extremity edema. Patient is noncompliant with diet. Patient was seen by cardiology yesterday, her medications were adjusted Patient denies chest pain, palpitation, cough, abdominal pain, hematochezia, dysuria, frequency, focal weakness, dysarthria, fever chills, polydipsia polyuria, hot or cold intolerance, easy bruisability, or rash or bleeding from mucosal membrane, rhinorrhea, epistaxis, earache, tinnitus, blurry vision, eye discharge, anxiety, depression. Other review of systems negative PAST SURGICAL HISTORY: Right mastectomy, , tonsillectomy, adenoidectomy , Achilles tendon repair SOCIAL HISTORY: Denies alcohol, tobacco, drugs FAMILY HISTORY: Hypertension Medications and Allergies Allergies Allergy/AdvReac Type Severity Reaction Status Date / Time No Known Allergies Allergy Verified 02/09/17 00:26 Home Medications Medication Instructions Recorded Confirmed Last Taken Type Losartan [Cozaar] 50 mg PO QDAY 03/03/17 03/03/17 Unknown History Metoprolol Xl [Metoprolol 50 mg PO QDAY 03/03/17 03/03/17 Unknown History SUCCINATE ER TAB] Spironolactone [Aldactone] 25 mg PO QDAY 03/03/17 03/03/17 Unknown History Exam - Physical Exam Narrative exam: Gen. appearance: Patient lying in bed, no apparent distress HEENT: Normocephalic, atraumatic, pupils equally round and reactive to light, extraocular movement intact, and no sclericterus,. No JVD or thyromegaly or nodule,neck supple, no carotid bruit ,mucous membranes moist, no exudate or erythema Heart: S1, S2, regular rate and rhythm Lungs: Crackles bilaterally, breathing comfortable Abdomen: Positive bowel sounds, nontender, nondistended, no organomegaly Extremity: + edema, no cyanosis, clubbing Skin: No rash, nodules, warm, dry Neuro: Oriented 3, cranial nerves II-12 intact, speech is fluent, motor and sensory intact - Constitutional Vitals: Temp Pulse Resp BP Pulse Ox 98.3 F 92 H 16 148/60 96 03/03/17 20:35 07/07/17 23:11 03/03/17 23:11 03/03/17 23:11 03/03/17 23:11 Results - Labs CBC & Chem 7: 03/03/17 20:40 03/03/17 20:40 Labs: Abnormal lab results 03/03/17 03/03/17 Range/Units 20:40 20:40 RBC 5.17 H (3.65-5.03) M/mm3 Hct 43.0 H (30.3-42.9) % MCH 27 L (28-32) pg Glucose 101 H (65-100) mg/dL NT-Pro-B Natriuret Pep 2031 H (0-900) pg/mL - Imaging and Cardiology EKG: image reviewed Chest x-ray: image reviewed Assessment and Plan CHF, acute on chronic systolic dysfunction Hypertension History of breast cancer Admit to medicine Start diuresis with IV Lasix Start aspirin, ARB, beta omid Check cardiac enzymes,consult cardiology, echo done recently Monitor I's and O's, daily weights Start DVT prophylaxis
[2017-03-04 00:35] LABS: Creatine Kinase MB 1.8 ng/mL (0.0-4.0)
[2017-03-04 00:36] LABS: Creatine Kinase 96 units/L (30-135)
[2017-03-04] MEDS: LASIX IV SCH ×2 (05:27→18:00)
[2017-03-04 06:31] LABS: Basophils % (Auto) 0.8 % (0.0-1.8); Eosinophils % (Auto) 1.8 % (0.0-4.3); Hematocrit 41.6 % (30.3-42.9); Hemoglobin 13.5 gm/dl (10.1-14.3); Mean Corpuscular HGB Conc 33 % (30-34); Mean Corpuscular Hemoglobin 27 pg (28-32); Mean Corpuscular Volume 83 fl (79-97); Platelet Count 195 K/mm3 (140-440); Red Cell Distribution Width 14.3 % (13.2-15.2); White Blood Count 7.9 K/mm3 (4.5-11.0)
[2017-03-04 06:50] LABS: Anion Gap 19 mmol/L; Blood Urea Nitrogen 16 mg/dL (7-17); Calcium 9.4 mg/dL (8.4-10.2); Carbon Dioxide 23 mmol/L (22-30); Chloride 101.5 mmol/L (98-107); Glucose 94 mg/dL (65-100); Potassium 3.9 mmol/L (3.6-5.0); Sodium 140 mmol/L (137-145)
[2017-03-04 06:56] LABS: Creatine Kinase MB 2.4 ng/mL (0.0-4.0)
[2017-03-04 06:58] LABS: Creatine Kinase 96 units/L (30-135)
[2017-03-04] MEDS ORDERED: LOVENOX SUB-Q SCH (10:00)
[2017-03-04] MEDS ORDERED: ASPIRIN PR SCH (10:00)
[2017-03-04] MEDS ORDERED: TOPROL XL PO SCH (10:00)
--- NOTE | 2017-03-04 10:32 | XRay Report ---
AP CHEST :03/03/17 20:30:00 CLINICAL: Difficulty breathing. COMPARISON:02/08/17 FINDINGS: Borderline cardiomegaly. Central vascular congestion is unchanged compared to prior exam.Stable bilateral multilobar reticular interstitial opacities and stable right upper lobe scar. No pulmonary consolidation. No pleural effusion. No tubes or lines. IMPRESSION: Bilateral multilobar interstitial changes are stable compared to the prior exam. No acute changes.
[2017-03-04] MEDS: COZAAR PO SCH (10:54)
[2017-03-04] MEDS: TOPROL XL PO SCH (10:55)
[2017-03-04] MEDS: ASPIRIN PO SCH (10:55)
[2017-03-04] MEDS: LOVENOX SUB-Q SCH (10:56)
[2017-03-04] MEDS ORDERED: ASPIRIN PO ONE (11:00)
--- NOTE | 2017-03-04 12:14 | Consultation ---
History of Present Illness Consult date: 03/04/17 Consult reason: shortness of breath ( ) History of present illness: This is a 61-year-old female well known to us with congestive heart failure followed by Dr. Kiser. He was seen by him a few days ago and medications were adjusted. Patient comes in with complaining about significant exertional dyspnea. No chest pain or palpitations. Patient is known to have severe breast. She had left ventricular dysfunction. Currently cardiac cath done on 619 did not show significant coronary artery disease requiring any intervention. Apparently the left ventricular function also normalized. We will review those reports. Echo apparently showed ejection fraction of 35% patient denies any change in her diet or activity level. She claims to be taking her medications regularly.. Past History Past Medical History: heart failure, hypertension, other ( ) Past Surgical History: mastectomy (right) Social history: no significant social history Family history: no significant family history Medications and Allergies Allergies Allergy/AdvReac Type Severity Reaction Status Date / Time No Known Allergies Allergy Verified 02/09/17 00:26 Home Medications Medication Instructions Recorded Confirmed Last Taken Type Losartan [Cozaar] 50 mg PO QDAY 03/03/17 03/03/17 Unknown History Metoprolol Xl [Metoprolol 50 mg PO QDAY 03/03/17 03/03/17 Unknown History SUCCINATE ER TAB] Spironolactone [Aldactone] 25 mg PO QDAY 03/03/17 03/03/17 Unknown History Active Meds: Active Medications Acetaminophen (Tylenol) 650 mg PO Q4H PRN PRN Reason: Pain MILD(1-3)/Fever >100.5/[facility] Aspirin (Aspirin) 325 mg PO QDAY [facility] Last Admin: 03/04/17 10:55 Dose: Not Given Bisacodyl (Dulcolax) 10 mg [place] QDAY PRN PRN Reason: Constipation unrelieved by MOM Enoxaparin Sodium (Lovenox) 40 mg SUB-Q QDAY@1000 [facility] Last Admin: 03/04/17 10:56 Dose: 40 mg Furosemide (Lasix) 40 mg IV BID@0600,1800 [facility] Last Admin: 03/04/17 05:27 Dose: 40 mg Losartan Potassium (Cozaar) 50 mg PO QDAY [facility] Last Admin: 03/04/17 10:54 Dose: 50 mg Magnesium Hydroxide (Milk Of Magnesia) 30 ml PO Q4H PRN PRN Reason: Constipation Metoprolol Succinate (Toprol Xl) 50 mg PO QDAY NATHAN Last Admin: 03/04/17 10:55 Dose: 50 mg Ondansetron HCl (Zofran) 4 mg IV Q8H PRN PRN Reason: N/V unrelieved by Reglan Oxycodone/Acetaminophen (Percocet 5/325) 1 tab PO Q6H PRN PRN Reason: Pain, Moderate (4-6) Review of Systems Constitutional: other (complains of fatigue) Ears, nose, mouth and throat: other Respiratory: cough, shortness of breath Gastrointestinal: other (no symptoms) Genitourinary Female: other Musculoskeletal: other (nose and) Endocrine: other (no symptoms) Physical Examination Vital Signs Resp Pulse Ox 19 98 03/03/17 20:34 03/03/17 20:34 General appearance: no acute distress HEENT: Positive: PERRL Neck: Positive: neck supple Cardiac: Positive: Reg Rate and Rhythm Lungs: Positive: clear to auscultation Neuro: Positive: Grossly Intact Abdomen: Positive: Unremarkable Extremities: Present: +1 Edema Results 03/04/17 06:06 03/04/17 06:06 Cardiac Enzymes 03/03/17 03/04/17 Range/Units 23:49 06:06 CK-MB (CK-2) 1.8 2.4 (0.0-4.0) ng/mL CBC 03/04/17 Range/Units 06:06 WBC 7.9 (4.5-11.0) K/mm3 RBC 5.00 (3.65-5.03) M/mm3 Hgb 13.5 (10.1-14.3) gm/dl Hct 41.6 (30.3-42.9) % Plt Count 195 (140-440) K/mm3 Lymph # 2.1 (1.2-5.4) K/mm3 [place] # 0.6 (0.0-0.8) K/mm3 Eos # 0.1 (0.0-0.4) K/mm3 Baso # 0.1 (0.0-0.1) K/mm3 Comprehensive Metabolic Panel 03/04/17 Range/Units 06:06 Sodium 140 (137-145) mmol/L Carbon Dioxide 23 (22-30) mmol/L BUN 16 (7-17) mg/dL Creatinine 0.8 (0.7-1.2) mg/dL Glucose 94 (65-100) mg/dL Calcium 9.4 (8.4-10.2) mg/dL - EKG Interpretation EKG: sinus rhythm (sinus tachycardia with left bundle branch block) Assessment and Plan 61-year-old female seen for cardiac evaluation. #1 Congestive heart failure Patient appears to have recurrent congestive heart failure symptoms. BNP 2030. Agree with current management with IV dietetics. As the patient states that she is not noncompliant with medications and diet as it is a change in her symptoms we'll obtain a echo to assess her LV function again. EKG shows left bundle-branch block. #2 hypertension #3 obesity #4 ca of breast status post right mastectomy Will monitor and follow closely. Thank you for allowing me to participate in the care of this pleasant lady. - Patient Problems (1) CHF exacerbation Current Visit: Yes Status: Acute Qualifiers: Congestive heart failure type: C (2) Shortness of breath Current Visit: No Status: Acute
--- NOTE | 2017-03-04 19:13 | Progress Note ---
Assessment and Plan CHF, acute on chronic systolic dysfunction Hypertension History of breast cancer plan: Start diuresis with IV Lasix Start aspirin, ARB, beta omid Cardiac enzymes,Cardiology consult, echo done recently Monitor I's and O's, daily weights DVT prophylaxis Subjective Date of service: 03/04/17 Principal diagnosis: Chf exacerbation Interval history: Symptomatically better Objective - Constitutional Vitals: Vital Signs - 12hr 03/04/17 03/04/17 03/04/17 07:50 10:54 10:55 Temperature 98.1 F Pulse Rate 76 76 Pulse Rate [ Left Radial] Pulse Rate [ 76 Radial] Respiratory 18 Rate Blood Pressure 128/62 128/62 Blood Pressure 128/62 [Left Arm] O2 Sat by Pulse 0 L Oximetry 03/04/17 03/04/17 03/04/17 11:35 11:51 15:24 Temperature 98.1 F 98.4 F Pulse Rate Pulse Rate [ 78 Left Radial] Pulse Rate [ 82 Radial] Respiratory 20 18 Rate Blood Pressure Blood Pressure 132/71 131/67 [Left Arm] O2 Sat by Pulse 100 97 97 Oximetry General appearance: Present: no acute distress, well-nourished - EENT Eyes: PERRL, EOM intact ENT: hearing intact, clear oral mucosa Ears: bilateral: normal - Neck Neck: supple, normal ROM - Respiratory Respiratory effort: normal Respiratory: bilateral: CTA - Breasts Breasts: normal - Cardiovascular Rhythm: regular Heart Sounds: Present: S1 & S2. Absent: gallop, rub Extremities: pulses intact, No edema, normal color, Full ROM - Gastrointestinal General gastrointestinal: Present: soft, non-tender, non-distended, normal bowel sounds - Genitourinary Female genitourinary: normal - Integumentary Integumentary: clear, warm, dry - Musculoskeletal Musculoskeletal: 1, strength equal bilaterally - Neurologic Neurologic: CNII-XII intact, moves all extremities, gait normal - Psychiatric Psychiatric: memory intact, appropriate mood/affect, intact judgment & insight - Allied health notes Allied health notes reviewed: nursing, case management - Labs CBC & Chem 7: 03/04/17 06:06 03/04/17 06:06 Labs: Abnormal lab results 03/04/17 Range/Units 06:06 MCH 27 L (28-32) pg
[2017-03-05] MEDS: LASIX IV SCH ×2 (06:22→17:22)
[2017-03-05] MEDS: ASPIRIN PO SCH (09:21)
[2017-03-05] MEDS: COZAAR PO SCH (09:21)
[2017-03-05] MEDS: TOPROL XL PO SCH (09:21)
[2017-03-05] MEDS: LOVENOX SUB-Q SCH (09:22)
--- NOTE | 2017-03-05 12:45 | Progress Note ---
Assessment and Plan 61-year-old female seen for cardiac evaluation. #1 Congestive heart failure Patient appears to have recurrent congestive heart failure symptoms. BNP 2030. EKG shows left bundle-branch block. #2 hypertension #3 obesity #4 ca of breast status post right mastectomy Patient had good diuresis. Dyspnea has improved. Patient appears to be quite anxious and she is to have had some mild chest discomfort earlier. EKG shows mild tachycardia and left bundle branch block pattern. Will obtain cardiac enzymes. Patient had an echocardiogram did show septal hypokinesis and overall left ventricular function is reduced to about 35%. Patient had cardiac catheterization in 02/13/2017 Which apparently showed no significant obstructive coronary artery disease requiring interventions. Echo findings on the Findings on explained again to the patient in detail. Family is also in the room. Plan is to continue IV diuresis. Continue cardiac enzymes and repeat BNP and BMP, monitor closely. We will add Aldactone 12.5 mg a day. Patient will also benefit from instruction on low sodium diet. - Patient Problems (1) CHF exacerbation Current Visit: Yes Status: Acute Qualifiers: Congestive heart failure type: C (2) Shortness of breath Current Visit: No Status: Acute Subjective Date of service: 03/05/17 Principal diagnosis: Chf exacerbation Interval history: Patient had an episode of chest discomfort earlier. EKG showed a left bundle- branch block pattern and sinus tachycardia. Patient appears to be quite anxious. Family members with the patient. Rhythm is stable. Patient had good diuresis and dyspnea has improved. Objective Vital Signs Temp Pulse Pulse Resp BP BP Pulse Ox 03/05/17 09:21 76 135/63 03/05/17 07:45 98.4 F 76 20 135/63 98 03/05/17 05:21 97.5 F L 77 20 116/58 98 03/05/17 00:35 98.6 F 74 20 122/58 98 03/05/17 00:00 70 03/04/17 21:47 99 03/04/17 21:28 98 03/04/17 20:54 97.9 F 75 18 130/70 97 03/04/17 15:24 98.4 F 78 18 131/67 97 - Physical Examination HEENT: Positive: PERRL Neck: Positive: neck supple Cardiac: Positive: Reg Rate and Rhythm Lungs: Positive: clear to auscultation Neuro: Positive: Grossly Intact Abdomen: Positive: Unremarkable Extremities: Present: normal - Imaging and Cardiology EKG: image reviewed - EKG Sinus rhythms and dysrhythmias: sinus tachycardia (LBBB)
[2017-03-05 13:44] LABS: Anion Gap 19 mmol/L; BUN/Creatinine Ratio 22.22; Blood Urea Nitrogen 20 mg/dL (7-17); Calcium 9.2 mg/dL (8.4-10.2); Carbon Dioxide 26 mmol/L (22-30); Chloride 100.1 mmol/L (98-107); Glucose 103 mg/dL (65-100); Potassium 4.4 mmol/L (3.6-5.0); Sodium 141 mmol/L (137-145)
[2017-03-05 13:49] LABS: Creatine Kinase MB 1.3 ng/mL (0.0-4.0)
[2017-03-05 13:50] LABS: Creatine Kinase 78 units/L (30-135)
--- NOTE | 2017-03-05 16:30 | Progress Note ---
Assessment and Plan CHF, acute on chronic systolic dysfunction Hypertension History of breast cancer plan: diuresis with IV Lasix aspirin, ARB, beta omid Cardiac enzymes,Cardiology consult, echo done recently Monitor I's and O's, daily weights DVT prophylaxis Aldactone Added Cardiology consult/f/u appreciated Subjective Date of service: 03/05/17 Principal diagnosis: Chf exacerbation Interval history: Symptomatically better Objective - Constitutional Vitals: Vital Signs - 12hr 03/05/17 03/05/17 03/05/17 05:21 07:45 09:21 Temperature 97.5 F L 98.4 F Pulse Rate 76 Pulse Rate [ 77 76 Left Radial] Respiratory 20 20 Rate Blood Pressure 135/63 Blood Pressure 116/58 135/63 [Left Arm] O2 Sat by Pulse 98 98 Oximetry 03/05/17 12:10 Temperature 98.3 F Pulse Rate Pulse Rate [ 68 Left Radial] Respiratory 20 Rate Blood Pressure Blood Pressure 139/65 [Left Arm] O2 Sat by Pulse 98 Oximetry General appearance: Present: no acute distress, well-nourished - EENT Eyes: PERRL, EOM intact ENT: hearing intact, clear oral mucosa Ears: bilateral: normal - Neck Neck: supple, normal ROM - Respiratory Respiratory effort: normal Respiratory: bilateral: CTA - Breasts Breasts: normal - Cardiovascular Rhythm: regular Heart Sounds: Present: S1 & S2. Absent: gallop, rub Extremities: pulses intact, No edema, normal color, Full ROM - Gastrointestinal General gastrointestinal: Present: soft, non-tender, non-distended, normal bowel sounds - Genitourinary Female genitourinary: normal - Integumentary Integumentary: clear, warm, dry - Musculoskeletal Musculoskeletal: 1, strength equal bilaterally - Neurologic Neurologic: moves all extremities - Psychiatric Psychiatric: memory intact, appropriate mood/affect, intact judgment & insight - Labs CBC & Chem 7: 03/04/17 06:06 03/05/17 13:03 Labs: Abnormal lab results 03/05/17 03/05/17 Range/Units 13:03 13:03 BUN 20 H (7-17) mg/dL Glucose 103 H (65-100) mg/dL NT-Pro-B Natriuret Pep 1512 H (0-900) pg/mL
[2017-03-05] MEDS: ALDACTONE PO SCH (17:21)
[2017-03-06] MEDS: LASIX IV SCH (06:25)
[2017-03-06] MEDS: ASPIRIN PO SCH (09:53)
[2017-03-06] MEDS: COZAAR PO SCH (09:53)
[2017-03-06] MEDS: TOPROL XL PO SCH (09:53)
[2017-03-06] MEDS: ALDACTONE PO SCH (09:53)
[2017-03-06] MEDS: LOVENOX SUB-Q SCH (09:54)
--- NOTE | 2017-03-06 11:39 | Discharge Summary ---
Providers - Providers Date of Admission: 03/03/17 23:27 Attending physician: CELSO FLYNN MD Primary care physician: EDIE COLEMAN MD Hospitalization Condition: Fair Hospital course: 61 yo woman with a history of breast cancer, status post right masectomy, comes emergency room with complaints of shortness of breath,PND, orthopnea and lower extremity edema. Patient is noncompliant with diet. She was seen in conjunction with cardiology, she received IV diuresis, her medications were optimized. She was counseled on improve compliance with low sodium diet. Patient clinically improved and was discharged home in improved condition Discharge diagnosis acute exacerbation of chronic systolic CHF Hypertension Obesity History of breast cancer status post mastectomy Disposition: TO HOME OR SELFCARE Time spent for discharge: 33 minutes Core Measure Documentation - Palliative Care Palliative Care/ Comfort Measures: Not Applicable - Core Measures Any of the following diagnoses?: heart failure - Heart Failure Discharge Requirements MOUSTAPHA/ARB for LVSD if EF <40%: Yes Beta omid at discharge: Yes Exam - Constitutional Vitals: Temp Pulse Resp BP Pulse Ox 98.0 F 69 18 113/57 99 03/06/17 10:56 03/06/17 10:56 03/06/17 10:56 03/06/17 10:56 03/06/17 10:56 General appearance: Present: no acute distress, well-nourished - EENT Eyes: Present: PERRL ENT: hearing intact, clear oral mucosa - Neck Neck: Present: supple, normal ROM - Respiratory Respiratory effort: normal Respiratory: bilateral: CTA - Cardiovascular Heart Sounds: Present: S1 & S2. Absent: rub, click - Extremities Extremities: pulses symmetrical, No edema Peripheral Pulses: within normal limits - Abdominal General gastrointestinal: Present: soft, non-tender, non-distended, normal bowel sounds Female genitourinary: Present: normal - Integumentary Integumentary: Present: clear, warm, dry - Musculoskeletal Musculoskeletal: gait normal, strength equal bilaterally - Psychiatric Psychiatric: appropriate mood/affect, intact judgment & insight - Neurologic Neurologic: CNII-XII intact, moves all extremities Plan Follow up with: PRIMARY CARE, [Primary Care Provider] - 3-5 Days MORELIA BARTH MD [Staff Physician] - 7 Days Prescriptions: Aspirin EC [Aspirin Enteric Coated TAB] 81 mg PO QDAY #30 tablet. Furosemide [Lasix TAB] 40 mg PO QDAY #30 tablet Metoprolol Xl [Metoprolol SUCCINATE ER TAB] 50 mg PO QDAY #30 tablet Spironolactone [Aldactone] 12.5 mg PO QDAY #30 tablet
[2017-03-06] MEDS ORDERED: PNEUMOVAX 23 IM ONE (12:00)
[2017-03-06 16:27] VITALS: BP 130/59
--- NOTE | 2017-03-06 17:19 | Admit Criteria Form ---
Admission Criteria Documentation: CARDIOLOGY GRG Clinical Indications for Admission to Inpatient Care ( Place 'X' for any and all applicable criteria): Hospital admission is needed for appropriate care of the patient because of ANY ONE of the following (1): [ ] I. Hemodynamic instability as indicated by ALL of the following (1)(2)(3) (4)(5) [ ]a) Vital signs or other findings not as expected for chronic patient condition or baseline [ ]b) Instability indicated by ANY ONE of the following: [ ]i) Hypotension [ ]ii) Symptomatic Tachycardia unresponsive to treatment ( e.g., analgesia, fluids, sedation as indicated) [ ]iii) Inadequate perfusion indicated by ANY ONE of the following: [ ] 1) Lactic acidosis (> 2 mmol/L) [ ] 2) New abnormal capillary refill (> 3 seconds) [ ] 3) Reduced urine output [ ] 4) New altered mental status [ ]iv) Orthostatic vital sign changes unresponsive to treatment (e.g., fluids) [ ]v) IV inotropic or vasopressor medication required to maintain adequate blood pressure or perfusion [ ] II. Severe heart failure as indicated by ANY ONE of the following(17)(18) [ ]a) Respiratory distress [ ]b) Hypotension [ ]c) Anasarca (refractory to outpatient therapy) [ ]d) Cardiac arrhythmias of immediate concern [ ]e) Myocardial ischemia [ ] III. Cardiac arrhythmias or findings of immediate concern indicated by ANY ONE of the following (19)(20): [ ] a) Heart rhythms that are inherently dangerous or unstable indicated by ANY ONE of the following (21)(22)(23): [ ] i) Resuscitated ventricular fibrillation or cardiac arrest [ ] ii) Ventricular escape rhythm [ ] iii) Sustained ventricular tachycardia (30 seconds or more of ventricular rhythm at greater than 100 beats per minute) [ ] iv) Nonsustained ventricular tachycardia and ANY ONE of the following: [ ] 1) Suspected cardiac ischemia as cause or consequence of ventricular tachycardia [ ] 2) In setting of acute myocarditis [ ] b) Unstable cardiac conduction defects indicated by ANY ONE of the following(23)(24)(25) [ ] i) Type II second-degree atrioventricular block [ ]ii) Third-degree atrioventricular block [ ]iii) New-onset left bundle branch block with suspected myocardial ischemia [ ]c) Any heart rhythm and ANY ONE of the following (21)(22)(26)(27) (28) [ ] i) Continuous long-term ECG monitoring needed (e.g., initiation of drug requiring monitoring for more than 24 hours) [ ] ii) Patient has automatic implanted cardioverter defibrillator that is repeatedly firing, malfunctioning, or in need of immediate adjustment of settings beyond the scope of ambulatory or observation care [ ]d) Heart rhythms of concern due to ANY ONE of the following: [ ] i) Hypotension [ ] ii) Respiratory distress [ ] iii) Association with other significant symptoms (e.g., bradycardia with syncope or ongoing dizziness, supraventricular tachycardia with chest pain (14)(15)(17) [ ] IV. Monitoring for cardiac contusion beyond the scope of observation care needed [A](30)(31)(32) [ ] V. Surgical or device complication (e.g., valve replacement complication , pacemaker dysfunction) (35)(41)(44)(45)(46) [ ] . Inpatient palliative care needed. [B](49) Also use Inpatient Palliative Care Criteria [ ] VII. Nonbacterial thrombotic (marantic) endocarditis (36)(43)(47)(48) [X ] VIII. Cardiology condition, symptom, or finding for which emergency and observation care has failed or are not considered appropriate. [ ] IX. Acute valvular disease requiring inpatient as indicated by ANY ONE of the following (41) [ ]a) Acute valvular regurgitation (42) [ ]b) Noninfectious valvulitis (43) [ ]c) Obstructive valve thrombosis [ ]d) Paravalvular leak [ ]e) Other significant valvular disorder remaining after emergency or observation level of care (as appropriate) [ ]X. Pericardial disease requiring inpatient treatment as indicated by ANY ONE of the following (33)(34)(35)(36)(37) [ ]a) Suspected tamponade (38)(39)(40) [ ]b) Hemopericardium [ ]c) Other significant pericardial disorder remaining after emergency or observation level of care (as appropriate) [ ] XI. Cardiac ischemia beyond scope of emergency and observation care. [ ] XII. Hypertension requiring inpatient treatment as indicated by ANY ONE of the following (6)(7)(8) [ ]a) SBP greater than 220 mm Hg or DBP greater than 120 mmHg despite treatment [ ]b) SBP greater than 140 mm Hg or DBP greater than 100 mm Hg with evidence of acute end organ damage as indicated by ANY ONE of the following [ ] i) Altered mental status [ ] ii) Acute renal failure as indicated by new onset of ANY ONE of the following (9)(10)(11)(12)(13) [ ]1) 3-fold rise in serum creatinine from baseline [ ]2) Serum creatinine greater than 4 mg/dL ( 354 micromoles/L) with acute rise greater than 0.5 mg/dL (44.2 micromoles/L) [ ]3) Reduction of more than 75% in estimated glomerular filtration rate from baseline [ ]4) Estimated glomerular filtration rate less than 35 mL/min/1.73m2 (0.59 mL/sec/1.73m2) in child up to 18 years of age [ ]5) Cessation of urine output indicated by ALL of the following [ ]A. Adequate volume status [ ]B. Inadequate urine output as indicated by ANY ONE of the following [ ]a. Urine output less than 0.3 mL/kg/hr for 24 hours [ ]b. Anuria (urine output less than 0.1 mL/kg/hr) for 12 hours [ ] iii) Aortic dissection [ ] iv) Myocardial Ischemia [ ] v) Left ventricular heart failure [ ]vi) Retinal Hemorrhage [ ]vii) Other significant finding [ ]c) Hypertension in child requiring inpatient treatment as indicated by ALL of the following(14)(15)(16) [ ] i) Outpatient treatment not effective, not available, or not appropriate [ ]ii) SBP or DBP greater than 95th percentile for age [ ]iii) Evidence of acute end organ damage as indicated by ANY ONE of the following [ ]1) Altered mental status [ ]2) Acute renal failure as indicated by new onset of ANY ONE of the following(9)(10)(11)(12)(13) [ ]A. 3-fold rise in serum creatinine from baseline [ ]B. Serum creatinine greater than 4 mg/dL (354 micromoles/L) with acute rise greater than 0.5 mg/dL (44.2 micromoles/L) [ ]C. Reduction of more than 75% in estimated glomerular filtration rate from baseline [ ]D. Estimated glomerular filtration rate less than 35 mL/min/1.73m2 (0.59 mL/sec/1.73m2) in child up to 18 years of age [ ]E. Cessation of urine output indicated by ALL of the following [ ]a. Adequate volume status [ ]b. Inadequate urine output as indicated by ANY ONE of the following [ ]i) Urine output less than 0.3 mL/kg/hr for 24 hours [ ]ii) Anuria ( urine output less than 0.1 mL/kg/hr) for 12 hours [ ]3) Severe headache [ ]4) Visual disturbance [ ]5) Retinal hemorrhage [ ]6) Other significant finding [ ]XIII. Complications of transplanted heart indicated by ANY ONE of the following(61): [ ]a) Acute graft rejection requiring inpatient management (eg, intravenous immunosuppression)(62)(63) [ ]b) Acute graft heart failure indicated by ANY ONE of the following(64): [ ]i) Hemodynamic instability [ ]ii) Cardiac arrhythmias of immediate concern [ ]iii) Pulmonary edema that is very severe (eg, mechanical ventilation needed, imminent or likely, need for 100% oxygen to keep oxygen saturation above 90%) [ ]iv) Pulmonary edema that is persistent as indicated by ALL of the following: [ ]1) New need for oxygen therapy to keep oxygen saturation above 90% (or increased FiO2 need from baseline) [ ]2) Has not improved sufficiently with emergency department or observation care IV diuretics or other heart failure treatments[E] [ ]v) Altered mental status that is severe or persistent [ ]vi) Increased creatinine (new on laboratory test) with reduction of more than 50% in estimated glomerular filtration rate from baseline [ ]vii) Progressively (ongoing) rising creatinine (known from past laboratory test) with reduction of more than 25% in estimated glomerular filtration rate from baseline [ ]viii) Acute renal failure [ ]ix) Acute peripheral ischemia (eg, examination shows pulseless, cool, mottled, or cyanotic extremity) [ ]x) Pulmonary artery catheter monitoring needed [ ]xi) Other sign or symptom of heart failure requiring inpatient treatment (ie, too severe or not responsive to outpatient and observation care treatment) [ ]c) Infection requiring inpatient management (eg, Hemodynamic instability, need for intravenous antimicrobial treatment)(66)(67)(68)(69)(70) [ ]d) Cardiac allograft vasculopathy requiring inpatient management ( eg evidence of cardiac ischemia)(71) [ ]e) Other complication of transplanted heart (eg, stroke, severe pulmonary hypertension, severe valvular dysfunction) requiring inpatient management(72) The original [facility] content created by [facility] has been revised. The portions of the content which have been revised are identified through the use of italic text or in bold, and [facility] has neither reviewed nor approved the modified material. All other unmodified content is copyright [facility] [employer]. Please see references footnoted in the original [facility] [employer] edition 2016 Admission Criteria Met: Yes
== END 2017-03-06 16:36 | disposition home or self-care (01) | DRG 293 ==
LOC: ED 20:30 → 4A 23:27
PROVIDERS: ADMIT Internal Medicine; ATTEND Internal Medicine
DX: I11.0 Hypertensive heart disease with heart failure (principal); I50.23 Acute on chronic systolic (congestive) heart failure; I44.7 Left bundle-branch block, unspecified; E66.9 Obesity, unspecified; Z90.11 Acquired absence of right breast and nipple; Z91.11 Patient's noncompliance with dietary regimen; Z90.89 Acquired absence of other organs; Z82.49 Family history of ischemic heart disease and other diseases of the circulatory system; Z85.3 Personal history of malignant neoplasm of breast; Z68.36 Body mass index [BMI] 36.0-36.9, adult
CPT/HCPCS: 36415; 71010; 80048; 81001; 82550; 82553; 83880; 84484; 85025; 90732; 93005; 93010; 93306; 96374; J1650; J1940; J2405

== ENCOUNTER 2019-03-04 11:00 | Outpatient (CLI) | payer MEDICAID | END 2019-03-04 11:01 | disposition home or self-care (01) | LOC: SLR 11:00 | PROVIDERS: ATTEND Internal Medicine | DX: G47.33 Obstructive sleep apnea (adult) (pediatric) (principal); R40.0 Somnolence; E66.9 Obesity, unspecified; I11.0 Hypertensive heart disease with heart failure; I50.9 Heart failure, unspecified | CPT/HCPCS: 95810 ==

== ENCOUNTER 2019-03-11 11:00 | Outpatient (CLI) | payer MEDICAID | END 2019-03-11 11:01 | disposition home or self-care (01) | LOC: SLR 11:00 | PROVIDERS: ATTEND Otolaryngology | DX: G47.33 Obstructive sleep apnea (adult) (pediatric) (principal); R40.0 Somnolence; R06.83 Snoring; E66.9 Obesity, unspecified | CPT/HCPCS: 95811 ==